=== PATIENT | female | born 2000 | race Two or more races ===

== ENCOUNTER 2023-03-21 12:40 | Emergency (ER) | payer MEDICAID, SELFPAY ==
[2023-03-21 12:52] VITALS: BP 160/109; PULSE 84; RESP 19; TEMP 36.6; O2SAT 99; BMI 49.2
--- NOTE | 2023-03-21 12:52 | ED.GENADULT ---
HPI - General Adult General Chief complaint: Abdominal Pain Stated complaint: ? Miscarriage Time Seen by Provider: 03/21/23 19:47 Source: patient Mode of arrival: ambulatory Limitations: no limitations History of Present Illness HPI narrative: 23 yo female hx of PCOS not on OCPs here with c/o vaginal bleeding on and off for 1 month has gone through a box of pads this month. Notes last night started to have clots and cramps thought it could be a miscarriage so she came here. She saw an OBGYN at [facility] 2 months ago but missed an appointment now has to go through the whole process again. She states she is still bleeding now. She has no other complaints. MD complaint: vaginal bleeding Onset (ago): month(s) (1) Location: pelvis Radiation: non-radiation Severity: mild Pain Consistency: intermittent Relieving factors: none Exacerbating factors: none Associated symptoms: denies other symptoms Treatments prior to arrival: none Related Data Allergies Allergy/AdvReac Type Severity Reaction Status Date / Time No Known Allergies Allergy Verified 03/21/23 12:51 Review of Systems Review of Systems: Constitutional : No Fever, No Chills ENT/Mouth : No sore throat, No Rhinorrhea Eyes: No Eye Pain, No Redness Cardiovascular : No Chest Pain, No SOB Respiratory : No Cough, No Sputum, No Wheezing Gastrointestinal : no Nausea, No Vomiting, No Diarrhea, no abdominal pain, Genitourinary : positive irregular bleeding, No Dysuria, No Urinary Frequency, positive pelvic pain Musculoskeletal : No Myalgias Skin : No rash Neuro : No Weakness, No Headache Psych : No Anxiety/Panic, No Depression Heme/Lymph: No bruising, No Lymphadenopathy Endocrine : No Polyuria, No Polydipsia All other systems reviewed and are negative [facility] Past Medical History Attestation statement: The following information was validated with the patient. Medical History PCOS (polycystic ovarian syndrome) Social History Social History (Updated 03/21/23 @ 19:57 by Fay Lorenzo DO) Patient Tobacco Use Status: Never used Tobacco Advance Directives: No Advance Directives Information Provided: No Physical Exam ED Vital Signs: Vital Signs - 24 hr 03/21/23 12:52 03/21/23 19:53 Temperature 98 F 98.1 F Pulse Rate 84 85 Respiratory Rate 19 16 Blood Pressure 160/109 H 145/87 H Pulse Oximetry 99 100 Oxygen Delivery Method Room Air BMI result Body Mass Index 49.2 Appearance: Alert. Oriented X3. No acute distress. Eyes: Pupils equal, round and reactive to light. ENT: Pharynx normal. Neck: Normal inspection. Neck supple. CVS: Normal heart rate and rhythm. Pulses normal. Respiratory: No respiratory distress. Breath sounds normal. Abdomen: Soft and nontender. : Jessica tech present - scant blood less 1 scopette os closed Skin: Skin warm and dry. Normal skin color. Normal skin turgor. Extremities: No lower extremity edema. No calf ttp Neuro: Oriented X 3. No motor deficit. No sensory deficit. Course Course Course Narrative: This is an RME: Additional HPI, ROS, PE not included below will be deferred to primary provider. This is a [id number], with a hx of irregular menses, presenting to the ER with complaints of vaginal bleeding. She states that she has been bleeding for the last month and half and last night noticed she passed multiple large blood clots last night. She states that typically she has irregular periods that cause her to spot for many days. Reports that she is still having vaginal bleeding now. Plan: Labs, UA, upreg, hcg quant ordered. Reevaluation(s) Reevaluation #1: H/H stable on exam no pain and no sig bleeding can follow up with OB Reevaluation #2: no urinary symptoms - urine likely from blood Medical Decision Making Medical Decision Making [facility] Narrative: 23 yo female with hx of PCOS here with vaginal bleeding x 1 month VS stable, H/H stable quant negative did have OB at [facility] - missed appointment at this time will obtain pelvic exam if sig bleeding will obtain US but if no sig bleeding she can consult her OB for OCP medications Differential Diagnosis Differential Diagnoses: The differential diagnosis associated with the presentation includes PCOS, fibroids, DUB Admission/Observation Consideration of admission/observation: Escalation of care including admission/observation considered H/H stable pelvic exam stable can be DC home to OB follow up Lab Data [facility] Lab Attestation statement: I reviewed the patient's lab results. prior bump in LFTs 03/21/23 13:35 03/21/23 13:35 Labs: Lab Results 03/21/23 03/21/23 03/21/23 Range/Units 13:35 13:35 19:56 WBC 10.3 (4.8-10.8) X10*3/uL RBC 4.94 (4.20-5.50) X10*6/uL Hgb 12.4 (12.0-16.0) g/dl Hct 38.9 (37.0-47.0) % MCV 78.7 L (80.0-98.0) fL MCH 25.1 L (27.0-33.0) pg MCHC 31.9 (31.0-35.0) g/dl RDW 14.1 (11.0-16.0) % Plt Count 243 (160-400) X10*3/uL MPV 10.5 (9.4-12.3) fL Immature Gran % (Auto) 1.2 H (0.0-0.4) % Neut % (Auto) 65.4 (45-73) % Lymph % (Auto) 23.2 (20-40) % [place] % (Auto) 7.3 (2-11) % Eos % (Auto) 2.4 (0-4) % Baso % (Auto) 0.5 (0-2) % Lymph # (Auto) 2.4 (1.2-4.9) X10*3/uL [place] # (Auto) 0.8 (0.1-1.2) X10*3/uL Eos # (Auto) 0.3 (0.0-0.4) X10*3/uL Baso # (Auto) 0.1 (0.0-0.2) X10*3/uL Abs Immat Gran (auto) 0.12 H (0.00-0.03) X10*3/uL Absolute Neuts (auto) 6.8 (2.0-8.3) x10*3/uL Absolute Nucleated RBC 0.000 (0.0-0.012) X10*3/uL Nucleated RBC % (auto) 0.0 (0.0-0.2) /100WBC Sodium 138 (135-145) mmol/L Potassium 4.9 (3.3-5.1) mmol/L Chloride 105 (96-108) mmol/L Carbon Dioxide 26 (22-29) mmol/L Anion Gap 12 (12-20) BUN 8 L (9-16) mg/dL Creatinine 0.69 (0.5-1.4) mg/dL Estim Creat Clear Calc 174.3 Estimated GFR > 60 Random Glucose 142 H (60-115) mg/dL Calcium 9.8 (8.4-10.2) mg/dL Total Bilirubin 0.3 (0.0-1.0) mg/dL Direct Bilirubin 0.1 (0.0-0.5) mg/dL AST 32 H (5-31) U/L ALT 70 H (0-31) U/L Alkaline Phosphatase 101 (39-117) U/L Total Protein 7.6 (6.5-8.0) g/dL Albumin 3.9 (3.5-5.0) g/dL Beta HCG, Quant < 2 mIU/mL Urine Color Yellow Urine Appearance Clear Urine pH 6.0 (5.0-9.0) Ur Specific [place] 1.025 (1.005-1.025) Urine Protein Trace (Neg-Trace) mg/dL Urine Glucose (UA) Negative (Negative) mg/dL Urine Ketones Negative (Negative) mg/dL Urine Blood Large (3+) H (Negative) Urine Nitrite Positive H (Negative) Ur Leukocyte Esterase Negative (Negative) Urine RBC 3-5 H (0-2) /HPF Urine WBC 0-5 (0-5) /HPF Ur Squamous Epith Cells 0-2 (0-2) /HPF Urine Bacteria 4+ (None Seen) Hyaline Casts 0-2 (0-2) /LPF Urine Test (NEGATIVE) 03/21/23 Range/Units 19:56 WBC (4.8-10.8) X10*3/uL RBC (4.20-5.50) X10*6/uL Hgb (12.0-16.0) g/dl Hct (37.0-47.0) % MCV (80.0-98.0) fL MCH (27.0-33.0) pg MCHC (31.0-35.0) g/dl RDW (11.0-16.0) % Plt Count (160-400) X10*3/uL MPV (9.4-12.3) fL Immature Gran % (Auto) (0.0-0.4) % Neut % (Auto) (45-73) % Lymph % (Auto) (20-40) % [place] % (Auto) (2-11) % Eos % (Auto) (0-4) % Baso % (Auto) (0-2) % Lymph # (Auto) (1.2-4.9) X10*3/uL [place] # (Auto) (0.1-1.2) X10*3/uL Eos # (Auto) (0.0-0.4) X10*3/uL Baso # (Auto) (0.0-0.2) X10*3/uL Abs Immat Gran (auto) (0.00-0.03) X10*3/uL Absolute Neuts (auto) (2.0-8.3) x10*3/uL Absolute Nucleated RBC (0.0-0.012) X10*3/uL Nucleated RBC % (auto) (0.0-0.2) /100WBC Sodium (135-145) mmol/L Potassium (3.3-5.1) mmol/L Chloride (96-108) mmol/L Carbon Dioxide (22-29) mmol/L Anion Gap (12-20) BUN (9-16) mg/dL Creatinine (0.5-1.4) mg/dL Estim Creat Clear Calc Estimated GFR Random Glucose (60-115) mg/dL Calcium (8.4-10.2) mg/dL Total Bilirubin (0.0-1.0) mg/dL Direct Bilirubin (0.0-0.5) mg/dL AST (5-31) U/L ALT (0-31) U/L Alkaline Phosphatase (39-117) U/L Total Protein (6.5-8.0) g/dL Albumin (3.5-5.0) g/dL Beta HCG, Quant mIU/mL Urine Color Urine Appearance Urine pH (5.0-9.0) Ur Specific [place] (1.005-1.025) Urine Protein (Neg-Trace) mg/dL Urine Glucose (UA) (Negative) mg/dL Urine Ketones (Negative) mg/dL Urine Blood (Negative) Urine Nitrite (Negative) Ur Leukocyte Esterase (Negative) Urine RBC (0-2) /HPF Urine WBC (0-5) /HPF Ur Squamous Epith Cells (0-2) /HPF Urine Bacteria (None Seen) Hyaline Casts (0-2) /LPF Urine Test NEGATIVE (NEGATIVE) Independent Historian Clinical information obtained from an independent historian. History obtained from or confirmed by: Spouse Tests considered The following testing was considered but not selected: US but given lack of bleeding on exam deferred to her OBGYN Discharge Plan Discharge Clinical Impression: Abnormal vaginal bleeding Patient Disposition: Home, Self-Care Instructions: Dysfunctional Uterine Bleeding (ED) Additional Instructions: avoid aspirin you can take motrin 400mg every 6 to 8 hours. please call your OBGYN. if you cannot get into them you can follow with ours. return for dizziness, large clots bigger than peaches, worsening pain or any other concerns. Referrals: Ean Cortez MD [Physician] - (OBGYN) Discharge Date/Time: 03/21/23 20:40
[2023-03-21 13:39] LABS: MANUAL DIFF FLAG NO
[2023-03-21 13:41] LABS: Basophils Absolute Auto 0.1 X10*3/uL (0.0-0.2); Basophils Percent Auto 0.5 % (0-2); Eosinophils Absolute Auto 0.3 X10*3/uL (0.0-0.4); Eosinophils Percent Auto 2.4 % (0-4); Hematocrit 38.9 % (37.0-47.0); Hemoglobin 12.4 g/dl (12.0-16.0); Imm Gran Abs Auto 0.12 X10*3/uL (0.00-0.03); Imm Gran Pct Auto 1.2 % (0.0-0.4); Lymphocytes Absolute Auto 2.4 X10*3/uL (1.2-4.9); Lymphocytes Percent Auto 23.2 % (20-40); Mean Corpuscular HGB Conc 31.9 g/dl (31.0-35.0); Mean Corpuscular Hemoglobin 25.1 pg (27.0-33.0); Mean Corpuscular Volume 78.7 fL (80.0-98.0); Mean Platelet Volume 10.5 fL (9.4-12.3); Monocytes Absolute Auto 0.8 X10*3/uL (0.1-1.2); Monocytes Percent Auto 7.3 % (2-11); Neutrophils Absolute Auto 6.8 x10*3/uL (2.0-8.3); Neutrophils Percent Auto 65.4 % (45-73); Platelet Count 243 X10*3/uL (160-400); Red Blood Count 4.94 X10*6/uL (4.20-5.50); Red Cell Distribution Width 14.1 % (11.0-16.0); White Blood Count 10.3 X10*3/uL (4.8-10.8)
[2023-03-21 14:05] LABS: Alanine Aminotransferase 70 U/L (0-31); Albumin Level 3.9 g/dL (3.5-5.0); Alkaline Phosphatase 101 U/L (39-117); Anion Gap 12 (12-20); Aspartate Amino Transferase 32 U/L (5-31); Bilirubin Direct 0.1 mg/dL (0.0-0.5); Bilirubin Total 0.3 mg/dL (0.0-1.0); Blood Urea Nitrogen 8 mg/dL (9-16); Calcium 9.8 mg/dL (8.4-10.2); Carbon Dioxide 26 mmol/L (22-29); Chloride 105 mmol/L (96-108); Creatinine Clr Calc Pharmacy 174.3; Estimated Glomerular Filt Rate > 60; Glucose Random 142 mg/dL (60-115); HCG Quantitative < 2 mIU/mL; Potassium 4.9 mmol/L (3.3-5.1); Sodium 138 mmol/L (135-145); Total Protein 7.6 g/dL (6.5-8.0)
[2023-03-21 19:53] VITALS: BP 145/87; PULSE 85; RESP 16; TEMP 36.7; O2SAT 100
[2023-03-21 20:13] LABS: Urine Pregnancy NEGATIVE (NEGATIVE)
[2023-03-21 20:15] LABS: Appearance Urine Clear; Color Urine Yellow; Glucose Urine UA Negative (Negative); Leukocyte Esterase Urine Negative (Negative); Nitrite Urine Positive (Negative); Specific Gravity - Urine 1.025 (1.005-1.025); UMIC TRIGGER UACC YES; UPreg QC Valid YES; Urine Blood Large (3+) (Negative); Urine Ketones Negative (Negative); Urine Protein Trace mg/dL (Neg-Trace)
[2023-03-21 20:59] LABS: Bacteria Urine 4+ (None Seen); Hyaline Casts Urine 0-2 /LPF (0-2); Squamous Epithelial Cell Urine 0-2 /HPF (0-2); UACC Culture Trigger YES; WBC Urine 0-5 /HPF (0-5)
[2023-03-22 11:29] LABS: CT PCR NOT DETECTED (Not Detect.); NG PCR NOT DETECTED (Not Detect.)
== END 2023-03-21 20:40 | disposition home or self-care (01) ==
PROVIDERS: Physician Assistant Medical; Emergency Provider Emergency Medicine; PCP Pediatrics
DX: N93.9 Abnormal uterine and vaginal bleeding, unspecified (principal)
CPT/HCPCS: 0353U; 36415; 80048; 80076; 81001; 81025; 84702; 85025; 87086; 99283; 99284

== ENCOUNTER 2023-04-12 13:46 | Outpatient (REF) | payer MEDICAID, SELFPAY ==
[2023-04-12 17:24] LABS: MANUAL DIFF FLAG NO
[2023-04-12 17:28] LABS: Basophils Absolute Auto 0.1 X10*3/uL (0.0-0.2); Basophils Percent Auto 0.5 % (0-2); Eosinophils Absolute Auto 0.2 X10*3/uL (0.0-0.4); Eosinophils Percent Auto 1.9 % (0-4); Hematocrit 40.7 % (37.0-47.0); Hemoglobin 12.6 g/dl (12.0-16.0); Imm Gran Abs Auto 0.14 X10*3/uL (0.00-0.03); Imm Gran Pct Auto 1.3 % (0.0-0.4); Lymphocytes Absolute Auto 2.4 X10*3/uL (1.2-4.9); Lymphocytes Percent Auto 22.6 % (20-40); Mean Corpuscular Hemoglobin 25.2 pg (27.0-33.0); Mean Corpuscular Volume 81.4 fL (80.0-98.0); Mean Platelet Volume 11.6 fL (9.4-12.3); Monocytes Absolute Auto 0.8 X10*3/uL (0.1-1.2); Monocytes Percent Auto 7.3 % (2-11); Neutrophils Absolute Auto 7.1 x10*3/uL (2.0-8.3); Neutrophils Percent Auto 66.4 % (45-73); Platelet Count 262 X10*3/uL (160-400); Red Cell Distribution Width 14.1 % (11.0-16.0); White Blood Count 10.7 X10*3/uL (4.8-10.8)
[2023-04-12 17:37] LABS: Estimated Average Glucose 151 mg/dL; Hemoglobin A1c % 6.9 % (<6.0)
[2023-04-12 17:48] LABS: Alanine Aminotransferase 72 U/L (0-31); Albumin Level 4.2 g/dL (3.5-5.0); Alkaline Phosphatase 110 U/L (39-117); Aspartate Amino Transferase 37 U/L (5-31); Bilirubin Direct 0.1 mg/dL (0.0-0.5); Bilirubin Total 0.3 mg/dL (0.0-1.0)
[2023-04-12 18:05] LABS: HCG Quantitative < 2 mIU/mL; Insulin 37 uU/mL (2-29); TSH reflex Free T4 1.31 uIU/mL (0.32-4.0); Vitamin D 25-OH Total 27.7 ng/mL (>30)
[2023-04-13 08:28] LABS: HBS Num1 1.51 mIU/mL (0-7.99); HBsAGNum1 0.36 S/CO (0.00-0.99); Hepatitis A Antibody IgM 0.24 Index (0-0.79); Hepatitis B Core Antibody Nonreactive (Nonreactive); Hepatitis B Surface Antigen Negative (Negative); ~HepC Num1 0.19 S/CO (0.00-0.79); ~Hepatitis A Antibody IgM Nonreactive (Nonreactive); ~Hepatitis B Surface Antibody NONREACTIVE (Nonreactive); ~Hepatitis C Antibody Nonreactive (Nonreactive)
== END 2023-04-12 13:47 | disposition home or self-care (01) ==
LOC: HO.CHCLDS 13:46
PROVIDERS: Visit Provider Pediatrics
DX: Z01.84 Encounter for antibody response examination (principal); E28.2 Polycystic ovarian syndrome
CPT/HCPCS: 36415; 80076; 82306; 83036; 83525; 84443; 84702; 85025; 86704; 86706; 86709; 86803; 87340

== ENCOUNTER → 2023-04-26 10:15 | Outpatient (BNVA) | payer MEDICAID, SELFPAY | PROVIDERS: PCP Pediatrics; Visit Provider Physician Assistant ==

== ENCOUNTER 2023-05-02 07:49 | Outpatient (AMB) | payer MEDICAID, SELFPAY ==
--- NOTE | 2023-05-02 13:36 | MHC.OFFVISWM ---
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 BMI 48.5 Allergies No Known Allergies Allergy (Verified 05/02/23 13:36) Medication List - Last Reconciled 05/02/23 by Chung Jhaveri MD metformin 500 mg PO BID HPI TV DOWNSTAIRS MAID SWL BMI 48.5 HPI Details Start time: 1.30pm, End time: 2.18pm ?I spent 43 minutes speaking with the patient on the phone plus an additional 5 minutes reviewing and updating records for a total of 48 minutes HPI Comments History of Present Illness Details Previous weight loss efforts: self diet and exercise Wakes up: 7am, Sleeps: 2am, naps in the afternoon Morning work schedule: 10am-3pm, Evening work schedule: 3pm-9pm Breakfast: 10am (eggs and sausage) Lunch: skips Dinner: 9pm (fast food) Snacks: 12am (chips) Exercise: Gym membership Fluids: Coffee/tea: none, soda: Regular Coke: 20oz/day, juice: 5 bottles per day (apple or orange juice), ETOH: none PFSH Medical History (Updated 05/02/23 @ 13:39 by Chung Jhaveri MD) Hyperlipidemia Morbid obesity PCOS (polycystic ovarian syndrome) Surgical History (Updated 04/26/23 @ 10:30 by Sanna Pantoja CMA) Hx of foot surgery Family History (Updated 04/26/23 @ 10:33 by Sanna Pantoja CMA) Mother Diabetes Thyroid condition Father Family history unknown Social History (Updated 04/26/23 @ 10:30 by Sanna Pantoja CMA) Alcohol intake: never Patient Tobacco Use Status: Never used Tobacco Assessment & Plan Assessment & Plan (1) Morbid obesity: Code(s): E66.01 - Morbid (severe) obesity due to excess calories Plan: 1.? Plan for lap sleeve gastrectomy. If diaphragmatic or ventral hernias are present at time of surgery, these will be repaired laparoscopically as well. Risks and complications were discussed in detail including possible conversion to an open procedure, anastomotic leak, bleeding requiring transfusion, small bowel obstruction, , DVT and pulmonary embolism, cardiac, or pulmonary complications, as long-term complications such as anastomotic ulcer, insufficient weight loss and vitamin deficiencies. I emphasized the importance of close follow-up, adherence to instructions and good communication. 2. Nutritional counseling. A) Plan with LUNCH: Start with 2 Isopure protein (buy at [employer], [employer], [employer], [employer]) shakes (HALF scoop EACH in 8oz water) at 8am-10am and 11am-1pm, dinner at 2pm (10 forks of protein and 10 forks of salad/vegetables) and 3 Zone Perfect protein bars (Zone Perfect protein bars, buy at Amazon, ?[employer], [employer], or [employer]) at 4pm-6pm, 7pm-9pm and 10pm-12am B) Plan with DINNER: Start with one Isopure protein shake (HALF scoop EACH in 8oz water) at 8am-10am, 2 Zone Perfect protein bars at 11am-1pm and 2pm-4pm, dinner at 5pm (10 forks of protein and 10 forks of salad/vegetables), one more Isopure protein shake with HALF scoop in 8oz water at 7pm-9pm and one more Zone Perfect protein bar after dinner at 10pm-12am. So you do 2 protein shakes, 3 protein bars and one meal per day. Meal to include lean meat (beef, fish, pork, turkey, chicken), or bolivian yogurt, or egg whites, or beans with a salad with olive oil and fruits (berries, pears, apples, kiwi). Avoid salt, breads, potatoes, rice, pasta, desserts. 3. Each shake would be drunk slowly, like coffee in a period of 2 hours. 4. Cut each bar in 4 pieces and eat each piece in 30min ?to make each bar last 2 hours. 5. I emphasized the importance of measuring accurately the food portion and measure it when serving the food in plate 6. The meal portions include 10 full-size forks of meat and 10 full-size forks of salad. You always eat the meat portion but you can replace up to 5 forks for salad/vegetables with rice, potatoes or pasta, or a fruit ?if you like. The less you do it the better weight loss will be. 7. One full-size fork is what it can be scooped on the fork without falling aside and not what can be bit with the fork. Use regular forks like those you find in a typical restaurant. 8.? Please send me weight measurements as soon as possible and then once a week. Always include your diet and exercise plan. 9. Start treadmill with an incline of 2.0 and speed of 3.0. Increase incline by 1 every 3 min to a max incline of 8.0, stay 3min at 8.0 and then return to 2.0 and repeat same steps until calorie goal is met. Goal is to burn 2000 calories per week on exercise, which means either 300 calories daily, or 400 calories 5 days per week, or 500 calories 4 days per week, or 650 calories 3 days per week. 10. Alternatively purchase a stationary bike, elliptical or treadmill at home that can track calories. Let me know if you do so I can give you an exercise plan. 11.?It is important of avoiding and for at least 18 months postoperatively and has been discussed at the infosession. 12. Goal is to lose at least 1.5-2lbs per week 13. Goal to lose 10% of your weight before surgery, which is about 29lbs. Ultimate weight goal: 262lbs before surgery 14. Please follow the diet plan exactly without any change. If you don't like something about the plan or you feel hungry you need to communicate with me so I can help you revise the plan. You should not change the plan yourself. 15. Replace regular coke with Coke Zero and the juices with the protein shake (2) PCOS (polycystic ovarian syndrome): Code(s): E28.2 - Polycystic ovarian syndrome (3) Hyperlipidemia: Code(s): E78.5 - Hyperlipidemia, unspecified Orders: Orders Insulin Today E28.2 - Polycystic ovarian syndrome, E66.01 - Morbid (severe) obesity due to excess calories, E78.5 - Hyperlipidemia, unspecified Lipid Panel Today E28.2 - Polycystic ovarian syndrome, E66.01 - Morbid (severe) obesity due to excess calories, E78.5 - Hyperlipidemia, unspecified IRON PROFILE Today E28.2 - Polycystic ovarian syndrome, E66.01 - Morbid (severe) obesity due to excess calories, E78.5 - Hyperlipidemia, unspecified Zinc Today E28.2 - Polycystic ovarian syndrome, E66.01 - Morbid (severe) obesity due to excess calories, E78.5 - Hyperlipidemia, unspecified Comprehensive Met. Panel Today E28.2 - Polycystic ovarian syndrome, E66.01 - Morbid (severe) obesity due to excess calories, E78.5 - Hyperlipidemia, unspecified Vitamin B1 Today E28.2 - Polycystic ovarian syndrome, E66.01 - Morbid (severe) obesity due to excess calories, E78.5 - Hyperlipidemia, unspecified C Reactive Protein Today E28.2 - Polycystic ovarian syndrome, E66.01 - Morbid (severe) obesity due to excess calories, E78.5 - Hyperlipidemia, unspecified H Pylori Breath Test Today E28.2 - Polycystic ovarian syndrome, E66.01 - Morbid (severe) obesity due to excess calories, E78.5 - Hyperlipidemia, unspecified Hemoglobin A1c Today E28.2 - Polycystic ovarian syndrome, E66.01 - Morbid (severe) obesity due to excess calories, E78.5 - Hyperlipidemia, unspecified XR chest 2V Today E28.2 - Polycystic ovarian syndrome, E66.01 - Morbid (severe) obesity due to excess calories, E78.5 - Hyperlipidemia, unspecified ECG 12 lead EKG Today E28.2 - Polycystic ovarian syndrome, E66.01 - Morbid (severe) obesity due to excess calories, E78.5 - Hyperlipidemia, unspecified FL upper GI w air Today E28.2 - Polycystic ovarian syndrome, E66.01 - Morbid (severe) obesity due to excess calories, E78.5 - Hyperlipidemia, unspecified Complete Blood Count Auto Diff Today E28.2 - Polycystic ovarian syndrome, E66.01 - Morbid (severe) obesity due to excess calories, E78.5 - Hyperlipidemia, unspecified Vitamin B12 and Folate Today E28.2 - Polycystic ovarian syndrome, E66.01 - Morbid (severe) obesity due to excess calories, E78.5 - Hyperlipidemia, unspecified Vitamin A Today E28.2 - Polycystic ovarian syndrome, E66.01 - Morbid (severe) obesity due to excess calories, E78.5 - Hyperlipidemia, unspecified Ferritin Today E28.2 - Polycystic ovarian syndrome, E66.01 - Morbid (severe) obesity due to excess calories, E78.5 - Hyperlipidemia, unspecified PTHI Today E28.2 - Polycystic ovarian syndrome, E66.01 - Morbid (severe) obesity due to excess calories, E78.5 - Hyperlipidemia, unspecified TSH reflex Free T4 Today E28.2 - Polycystic ovarian syndrome, E66.01 - Morbid (severe) obesity due to excess calories, E78.5 - Hyperlipidemia, unspecified Vitamin D 25-OH Total Today E28.2 - Polycystic ovarian syndrome, E66.01 - Morbid (severe) obesity due to excess calories, E78.5 - Hyperlipidemia, unspecified US abdomen comp w elastography Today E28.2 - Polycystic ovarian syndrome, E66.01 - Morbid (severe) obesity due to excess calories, E78.5 - Hyperlipidemia, unspecified Referrals Nutrition/Dietitian Referral E28.2 - Polycystic ovarian syndrome, E66.01 - Morbid (severe) obesity due to excess calories, E78.5 - Hyperlipidemia, unspecified Behavioral Health Referral E28.2 - Polycystic ovarian syndrome, E66.01 - Morbid (severe) obesity due to excess calories, E78.5 - Hyperlipidemia, unspecified Telehealth Telehealth Location of provider rendering services: practice address Location of patient: address on file Patient Identification confirmed using: Name, : Yes Telehealth method: voice only Patient verbally consented to treatment: Yes Patient verbally consented to billing insurance company: Yes Patient informed of any privacy concerns related to visit: Yes Minutes spent on Phone/Video with Pt.: 48 Coding Level of Care Code Tele [facility] Pt Level 4 (68629) Diagnoses Morbid obesity E66.01 PCOS (polycystic ovarian syndrome) E28.2 Hyperlipidemia E78.5 Time Spent (min) 48
[2023-05-02 13:47] VITALS: BMI 48.5
== END 2023-05-02 14:18 | disposition home or self-care (01) ==
LOC: HO.HBS 07:49
PROVIDERS: PCP Pediatrics; Visit Provider Surgery
DX: E66.01 Morbid (severe) obesity due to excess calories (principal); Z68.42 Body mass index [BMI] 45.0-49.9, adult; E28.2 Polycystic ovarian syndrome; E78.5 Hyperlipidemia, unspecified
CPT/HCPCS: 99204

== ENCOUNTER → 2023-05-02 07:49 | Outpatient (BNVA) | payer MEDICAID, SELFPAY | PROVIDERS: PCP Pediatrics; Visit Provider Surgery ==

== ENCOUNTER 2023-05-12 08:24 | Outpatient (REF) | payer MEDICAID, SELFPAY ==
--- NOTE | ~2023-05-12 | XR_ITS ---
EXAMINATION: XR CHEST 2 VIEWS CLINICAL INFORMATION: Morbid obesity. COMPARISON: None. TECHNIQUE: Frontal and lateral views of the chest were obtained. FINDINGS: The heart, great vessels, pulmonary vasculature and mediastinum are normal. The lungs show no focal infiltrate, effusion or pneumothorax. There is no acute osseous abnormality. XR/XR chest 2V IMPRESSION: No active cardiopulmonary disease.
[2023-05-12 08:57] LABS: MANUAL DIFF FLAG NO
[2023-05-12 09:18] LABS: Basophils Percent Auto 0.3 % (0-2); Eosinophils Absolute Auto 0.2 X10*3/uL (0.0-0.4); Hematocrit 39.8 % (37.0-47.0); Hemoglobin 12.6 g/dl (12.0-16.0); Imm Gran Abs Auto 0.07 X10*3/uL (0.00-0.03); Imm Gran Pct Auto 0.8 % (0.0-0.4); Lymphocytes Absolute Auto 1.8 X10*3/uL (1.2-4.9); Lymphocytes Percent Auto 20.3 % (20-40); Mean Corpuscular HGB Conc 31.7 g/dl (31.0-35.0); Mean Corpuscular Hemoglobin 24.9 pg (27.0-33.0); Mean Corpuscular Volume 78.7 fL (80.0-98.0); Mean Platelet Volume 10.7 fL (9.4-12.3); Monocytes Absolute Auto 0.7 X10*3/uL (0.1-1.2); Monocytes Percent Auto 8.3 % (2-11); Neutrophils Absolute Auto 5.9 x10*3/uL (2.0-8.3); Neutrophils Percent Auto 68.3 % (45-73); Platelet Count 241 X10*3/uL (160-400); Red Blood Count 5.06 X10*6/uL (4.20-5.50); Red Cell Distribution Width 13.6 % (11.0-16.0); White Blood Count 8.6 X10*3/uL (4.8-10.8)
[2023-05-12 09:25] LABS: Estimated Average Glucose 143 mg/dL; Hemoglobin A1c % 6.6 % (<6.0)
[2023-05-12 09:57] LABS: Alanine Aminotransferase 112 U/L (0-31); Albumin Level 4.1 g/dL (3.5-5.0); Alkaline Phosphatase 100 U/L (39-117); Anion Gap 13 (12-20); Aspartate Amino Transferase 57 U/L (5-31); Bilirubin Total 0.3 mg/dL (0.0-1.0); Blood Urea Nitrogen 14 mg/dL (9-16); C Reactive Protein 1.75 mg/dL (< or = 0.50); Carbon Dioxide 24 mmol/L (22-29); Chloride 104 mmol/L (96-108); Cholesterol 219 mg/dL (<200); Estimated Glomerular Filt Rate > 60; Glucose Random 126 mg/dL (60-115); HDL Cholesterol 34 mg/dL (>40); Iron 39 mcg/dL (30-160); LDL Cholesterol Calculated 160 mg/dL (<100); Percent Iron Saturation 13 % (15-50); Potassium 4.6 mmol/L (3.3-5.1); Sodium 136 mmol/L (135-145); Total Iron Binding Capacity 305 mcg/dL (228-428); Total Protein 7.8 g/dL (6.5-8.0); Triglycerides 126 mg/dL (<150); Unsaturated Iron Binding 266 ug/dL
[2023-05-12 10:14] LABS: Ferritin 102 ng/mL (10-122); Insulin 22 uU/mL (2-29); TSH reflex Free T4 1.12 uIU/mL (0.32-4.0); Vitamin D 25-OH Total 25.3 ng/mL (>30)
[2023-05-12 10:25] LABS: Folate 7.9 ng/mL (> or = 4.0); Vitamin B12 600 pg/mL (200-900)
[2023-05-14 11:04] LABS: Calcium (PTHI) 9.8 mg/dL (8.6-10.2); PTHI 31 pg/mL (16-77)
[2023-05-15 22:44] LABS: Zinc 66 mcg/dL (60-130)
[2023-05-16 14:58] LABS: Vitamin B1 <6 nmol/L (8-30)
[2023-05-17 17:13] LABS: Vitamin A 42 mcg/dL (38-98)
== END 2023-05-12 08:25 | disposition home or self-care (01) ==
LOC: HO.LAB 08:24
PROVIDERS: PCP Pediatrics; Visit Provider Surgery
DX: E66.01 Morbid (severe) obesity due to excess calories (principal); E28.2 Polycystic ovarian syndrome; E78.5 Hyperlipidemia, unspecified
CPT/HCPCS: 71046; 80053; 80061; 82306; 82607; 82728; 82746; 83036; 83525; 83540; 83970; 84425; 84443; 84590; 84630; 85025; 86140

== ENCOUNTER → 2023-05-15 08:32 | Outpatient (REF) | payer MEDICAID, SELFPAY ==
--- NOTE | 2023-05-15 09:08 | ECG_ITS ---
Test Reason : e66.01 Blood Pressure : / mmHG Vent. Rate : 077 BPM Atrial Rate : 077 BPM P-R Int : 146 ms QRS Dur : 084 ms QT Int : 384 ms P-R-T Axes : 038 046 030 degrees QTc Int : 434 ms Normal sinus rhythm Normal ECG No previous ECGs available Referred By: Chung Jhaveri Electronically Signed By:EVITA YEE MD
[2023-05-17 16:30] LABS: H Pylori Breath Test Negative (Negative)
== END ==
LOC: HO.CARD 08:32
PROVIDERS: Absent Provider Surgery; PCP Pediatrics; Visit Provider Physician Assistant
DX: E66.01 Morbid (severe) obesity due to excess calories (principal); E28.2 Polycystic ovarian syndrome; E78.5 Hyperlipidemia, unspecified
CPT/HCPCS: 83013; 93005

== ENCOUNTER 2023-06-01 08:25 | Outpatient (AMB) | payer MEDICAID, SELFPAY ==
--- NOTE | 2023-06-01 10:58 | MHC.OFFVISWM ---
Intake VS Expanded 06/01/23 11:07 Height 5 ft 5 in Weight 277 lb 4 oz BMI 46.1 Body Fat % 60.1 Body Fat Mass 166.7 Fat Free Mass 110.6 Visceral Fat Rating 27 Body Water % 27.3 Body Water Mass 75.7 Basal Metabolic Rate/Score 1,453 Intake Visit Reasons: TV Follow Up SWL - 1ST Allergies No Known Allergies Allergy (Verified 05/02/23 13:36) HPI TV Follow Up SWL - 1ST HPI Details Start time: 10.54am, End time: 11.14am ?I spent 15 minutes speaking with the patient on the phone plus an additional 5 minutes reviewing and updating records for a total of 20 minutes HPI Comments History of Present Illness Details Overall weight loss: 14.2 lbs, or 4.87% TBWL Is doing 2 protein shakes, 2 protein bars and one meal Exercise: is doing home treadmill daily for 400-500 calories (speed: 3mph, incline:). Dancing [facility] Medical History (Updated 05/16/23 @ 17:47 by Chung Jhaveri MD) Hyperlipidemia Morbid obesity PCOS (polycystic ovarian syndrome) Surgical History (Updated 04/26/23 @ 10:30 by Sanna Pantoja CMA) Hx of foot surgery Family History (Updated 04/26/23 @ 10:33 by Sanna Pantoja CMA) Mother Diabetes Thyroid condition Father Family history unknown Social History (Updated 04/26/23 @ 10:30 by Sanna Pantoja CMA) Alcohol intake: never Patient Tobacco Use Status: Never used Tobacco Assessment & Plan Assessment & Plan (1) Morbid obesity: Code(s): E66.01 - Morbid (severe) obesity due to excess calories Plan: 1. Continue same nutritional plan: A) Plan with LUNCH: Start with 2 Isopure protein shakes (HALF scoop EACH in 8oz water) at 8am-10am and 11am-1pm, dinner at 2pm (10 forks of protein and 10 forks of salad/vegetables) and 3 Zone Perfect protein bars at 4pm-6pm, 7pm-9pm and 10pm-12am B) Plan with DINNER: Start with one Isopure protein shake (HALF scoop EACH in 8oz water) at 8am-10am, 2 Zone Perfect protein bars at 11am-1pm and 2pm-4pm, dinner at 5pm (10 forks of protein and 10 forks of salad/vegetables), one more Isopure protein shake with HALF scoop in 8oz water at 7pm-9pm and one more Zone Perfect protein bar after dinner at 10pm-12am. 2. Try to measure the food portions in forkfuls as we discussed today with a goal of 10 forks of protein and 10 forks of salad or vegetables 3. Use the 3rd protein bar if you feel hungrier measuring the food portions as I explained 4. Start treadmill with an incline of 2.0 and speed of 3.0. Increase incline by 1 every 3 min to a max incline of 8.0, stay 3min at 8.0 and then return to 2.0 and repeat same steps until calorie goal is met. Goal is to burn 2000 calories per week on exercise, which means either 300 calories daily, or 400 calories 5 days per week, or 500 calories 4 days per week, or 650 calories 3 days per week. 5. Continue to send me weight measurements weekly on Wednesdays Telehealth Telehealth Location of provider rendering services: practice address Location of patient: address on file Patient Identification confirmed using: Name, : Yes Telehealth method: voice only Patient verbally consented to treatment: Yes Patient verbally consented to billing insurance company: Yes Patient informed of any privacy concerns related to visit: Yes Minutes spent on Phone/Video with Pt.: 20 Coding Level of Care Code Tele Est Pt Level 3 (26702) Diagnoses Morbid obesity E66.01 Time Spent (min) 20
[2023-06-01 11:07] VITALS: BMI 46.1
== END 2023-06-01 11:15 | disposition home or self-care (01) ==
LOC: HO.HBS 08:25
PROVIDERS: PCP Pediatrics; Visit Provider Surgery
DX: E66.01 Morbid (severe) obesity due to excess calories (principal); Z68.42 Body mass index [BMI] 45.0-49.9, adult
CPT/HCPCS: 99213

== ENCOUNTER → 2023-06-01 08:25 | Outpatient (BNVA) | payer MEDICAID, SELFPAY | PROVIDERS: PCP Pediatrics; Visit Provider Surgery ==

== ENCOUNTER 2023-06-04 07:58 | Outpatient (AMB) | payer MEDICAID, SELFPAY ==
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
== END 2023-06-04 09:23 | disposition home or self-care (01) ==
PROVIDERS: PCP Pediatrics; Visit Provider Counselor Mental Health
DX: F33.0 Major depressive disorder, recurrent, mild (principal); F50.81 Binge eating disorder; E66.01 Morbid (severe) obesity due to excess calories; E28.2 Polycystic ovarian syndrome
CPT/HCPCS: 90791

== ENCOUNTER → 2023-06-04 07:58 | Outpatient (BNVA) | payer MEDICAID, SELFPAY | PROVIDERS: PCP Pediatrics; Visit Provider Counselor Mental Health | DX: F50.81 Binge eating disorder (principal); F33.0 Major depressive disorder, recurrent, mild; E66.01 Morbid (severe) obesity due to excess calories; E28.2 Polycystic ovarian syndrome; E78.5 Hyperlipidemia, unspecified | CPT/HCPCS: 90791 ==

== ENCOUNTER → 2023-06-07 11:23 | Outpatient (BNVA) | payer MEDICAID, SELFPAY | PROVIDERS: PCP Pediatrics; Visit Provider Dietitian, Registered | DX: E66.9 Obesity, unspecified (principal) | CPT/HCPCS: 97802 ==

== ENCOUNTER 2023-06-20 08:54 | Outpatient (REF) | payer MEDICAID, SELFPAY ==
--- NOTE | ~2023-06-20 | US_ITS ---
EXAMINATION: US COMPLETE ABDOMEN WITH LIVER ELASTOGRAPHY CLINICAL INFORMATION: Obesity. COMPARISON: None available. TECHNIQUE: Real-time imaging of the abdominal viscera. Noninvasive ultrasound liver fibrosis assessment is performed using Mili ElastPQ point quantification shear wave elastography (2D-SWE) with a C5-2 MHz transducer. Multiple elastography samples are obtained. FINDINGS: PANCREAS: Head and body appear unremarkable. Tail not visualized. ABDOMINAL AORTA: The proximal, middle, and distal aortic segments are normal in caliber. INFERIOR VENA CAVA: Visualized portions are normal. LIVER: Diffusely echogenic. Liver appears unremarkable in contour. No focal lesion or intrahepatic biliary duct dilatation appreciated. The right lobe measures 19.7 cm in length. The left lobe measures 13.2 cm in length. Portal flow is towards the liver (hepatopetal). Shear wave liver elastography median stiffness is 1.69 m/s (reference: normal median stiffness is 1.3 m/s or less). IQR/median stiffness to assess sampling precision is 0.14 (reference: good quality data set is IQR/median stiffness of 0.15 or less). GALLBLADDER: The gallbladder is physiologically distended without evidence of stones, sludge, polyps, wall thickening or pericholecystic fluid. COMMON BILE DUCT: Normal in caliber measuring 0.2 cm in diameter. RIGHT KIDNEY: No hydronephrosis. No renal calculi or focal parenchymal lesion identified. The kidney measures 11.5 cm in maximum dimension. LEFT KIDNEY: No hydronephrosis. No renal calculi or focal parenchymal lesion identified. The kidney measures 12.5 cm in maximum dimension. SPLEEN: The spleen measures 13.5 cm in maximum dimension. FREE FLUID: None. US/US abdomen comp w elastography IMPRESSION: 1. Mild hepatosplenomegaly. Fatty infiltration of the liver. 2. Liver elastography: In the absence of other known clinical signs, measurements rule out compensated advanced chronic liver disease. If there are known clinical signs, further testing may be needed for confirmation. REFERENCE: Society of Radiologists in Ultrasound Liver Stiffness Thresholds (2020): LIVER STIFFNESS THRESHOLDS: *Liver Stiffness equal or less than 1.3 m/s: High probability of being normal. *Liver Stiffness less than 1.7 m/s: In the absence of other known clinical signs, rules out compensated advanced chronic liver disease. *Liver Stiffness 1.7-2.1 m/s: Suggestive of compensated advanced chronic liver disease but need further test for confirmation. *Liver Stiffness over 2.1 m/s: Rules in compensated advanced chronic liver disease. *Liver Stiffness over 2.4 m/s: Suggestive of clinically significant portal hypertension. QUALITY OF DATA SET: *IQR/Median value equal or less than 0.15 implies a quality data set. *IQR/Median value over 0.15 implies a poor quality data set. OTHER CONSIDERATIONS: The stage of liver fibrosis may be overestimated in the setting of acute hepatitis, liver inflammation, elevated liver function tests, hepatic vascular congestion, obstructive cholestasis, non-fasting state, and infiltrative diseases such as amyloidosis and lymphoma. In some patients with NAFLD, the liver stiffness thresholds for compensated advanced chronic liver disease may be lower. In causes other than viral hepatitis and NAFLD, liver stiffness thresholds are not well established.
== END 2023-06-20 08:55 | disposition home or self-care (01) ==
LOC: HO.US 08:54
PROVIDERS: PCP Pediatrics; Visit Provider Surgery
DX: E66.01 Morbid (severe) obesity due to excess calories (principal); E28.2 Polycystic ovarian syndrome; E78.5 Hyperlipidemia, unspecified
CPT/HCPCS: 76705; 76981

== ENCOUNTER 2023-06-25 09:21 | Outpatient (AMB) | payer OTHER, SELFPAY ==
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
== END 2023-06-25 10:09 | disposition home or self-care (01) ==
PROVIDERS: PCP Pediatrics; Visit Provider Counselor Mental Health
DX: F33.0 Major depressive disorder, recurrent, mild (principal); F50.81 Binge eating disorder; E66.01 Morbid (severe) obesity due to excess calories; E28.2 Polycystic ovarian syndrome
CPT/HCPCS: 90834

== ENCOUNTER → 2023-06-25 09:21 | Outpatient (BNVA) | payer MEDICAID, SELFPAY | PROVIDERS: PCP Pediatrics; Visit Provider Counselor Mental Health | DX: F33.0 Major depressive disorder, recurrent, mild (principal); F50.81 Binge eating disorder; E66.01 Morbid (severe) obesity due to excess calories; E78.5 Hyperlipidemia, unspecified; E28.2 Polycystic ovarian syndrome | CPT/HCPCS: 90834 ==

== ENCOUNTER 2023-06-27 08:04 | Outpatient (AMB) | payer MEDICAID, SELFPAY ==
--- NOTE | 2023-06-27 11:13 | MHC.OFFVISWM ---
Intake VS Expanded 06/27/23 11:21 Height 5 ft 5 in Weight 270 lb 8 oz BMI 45.0 Body Fat % 58.4 Body Fat Mass 158.1 Fat Free Mass 112.6 Visceral Fat Rating 26 Body Water % 28.5 Body Water Mass 77.1 Basal Metabolic Rate/Score 1,475 Intake Visit Reasons: TV Follow Up SWL Allergies No Known Allergies Allergy (Verified 05/02/23 13:36) HPI TV Follow Up SWL HPI Details Start time: 11.14am, End time: 11.34am ?I spent 15 minutes speaking with the patient on the phone plus an additional 5 minutes reviewing and updating records for a total of 20 minutes HPI Comments History of Present Illness Details Overall weight loss: 20.7lbs, or 7.1% TBWL Is doing 2 Isopure protein shakes (1/2 scoop in water), 2 Zone Perfect protein bars and one meal (10 forkfuls of protein and 10 forkfuls of salad or vegetables) Exercise: doing treadmill x 3/week (speed: 2.0, incline 2-8) for 400 calories PFSH Medical History (Updated 06/04/23 @ 09:23 by Christy Adhikari) Hyperlipidemia Morbid obesity PCOS (polycystic ovarian syndrome) Surgical History (Updated 04/26/23 @ 10:30 by Sanna Pantoja CMA) Hx of foot surgery Family History (Updated 04/26/23 @ 10:33 by Sanna Pantoja CMA) Mother Diabetes Thyroid condition Father Family history unknown Social History (Updated 04/26/23 @ 10:30 by Sanna Pantoja CMA) Alcohol intake: never Patient Tobacco Use Status: Never used Tobacco Assessment & Plan Assessment & Plan (1) Morbid obesity: Code(s): E66.01 - Morbid (severe) obesity due to excess calories Plan: 1. Continue same nutritional plan of 2 Isopure protein shakes (1/2 scoop in water), 2 Zone Perfect protein bars and one meal (10 forkfuls of protein and 10 forkfuls of salad or vegetables). 2. Change treadmill with an incline of 4.0 and speed of 2.5. Increase incline by 1 every 3 min to a max incline of 10.0, stay 3min at 10.0 and then return to 4.0 and repeat same steps until calorie goal is met. Goal is to burn 2000 calories per week on exercise, which means either 300 calories daily, or 400 calories 5 days per week, or 500 calories 4 days per week, or 650 calories 3 days per week. 3. Continue to send me weight measurements weekly on Wednesdays Telehealth Telehealth Location of provider rendering services: practice address Location of patient: address on file Patient Identification confirmed using: Name, : Yes Telehealth method: voice only Patient verbally consented to treatment: Yes Patient verbally consented to billing insurance company: Yes Patient informed of any privacy concerns related to visit: Yes Minutes spent on Phone/Video with Pt.: 20 Coding Level of Care Code Tele Est Pt Level 3 (47716) Diagnoses Morbid obesity E66.01 Time Spent (min) 20
[2023-06-27 11:21] VITALS: BMI 45.0
== END 2023-06-27 11:35 | disposition home or self-care (01) ==
LOC: HO.HBS 08:04
PROVIDERS: PCP Pediatrics; Visit Provider Surgery
DX: E66.01 Morbid (severe) obesity due to excess calories (principal); Z68.42 Body mass index [BMI] 45.0-49.9, adult
CPT/HCPCS: 99213

== ENCOUNTER → 2023-06-27 08:04 | Outpatient (BNVA) | payer MEDICAID, SELFPAY | PROVIDERS: PCP Pediatrics; Visit Provider Surgery ==

== ENCOUNTER 2023-07-17 09:06 | Outpatient (REF) | payer MEDICAID, SELFPAY ==
--- NOTE | ~2023-07-17 | FL_ITS ---
EXAMINATION: XR FLUOROSCOPY UPPER GI WITH AIR CLINICAL INFORMATION: Preop bariatric surgery; morbid obesity. Patient has no complaints. COMPARISON: None TECHNIQUE: Fluoroscopic air contrast upper GI examination was performed utilizing standard techniques with thin and thick barium and effervescent granules. Numerous spot images were obtained. Several fluoroscopic image hold cine sequences were also obtained. FINDINGS: Lateral cine images of the oropharynx and hypopharynx demonstrate normal swallow mechanism with normal epiglottic inversion and soft palate elevation. No tracheal penetration, glottic or subglottic aspiration identified. No nasopharyngeal reflux present. Hypopharyngeal structures appear normal without evidence of mass or diverticulum. There was no significant cricopharyngeal achalasia. Dual and single contrast images of the esophagus demonstrate normal caliber, contour, and mucosal pattern. No evidence of stricture, mass, or ulcerations identified. Esophageal peristalsis was normal. Tiny type I sliding hiatus hernia present. Spontaneous gastroesophageal reflux was identified to the level of the aortic arch. Dual contrast and single contrast images of the stomach demonstrated normal contour and mucosal pattern without evidence of mass, ulceration, or other abnormality. Contrast freely passed into the gastric antrum and duodenal bulb without delay. Single and air-contrast images of the duodenal bulb demonstrate no abnormality. The duodenal sweep has a normal appearance, course, and mucosal fold appearance. The imaged proximal jejunum has a normal fold pattern and caliber. FLUOROSCOPY TIME: 3 minutes 12 seconds Number of Spot Images: 9 Number of cines obtained: 4 DOSE AREA PRODUCT: 4021 uGy-m2 (microgray-meter squared) FL/FL upper GI w air IMPRESSION: 1. Possible tiny type I sliding hiatus hernia, versus prominent esophageal vestibule. 2. Mild gastroesophageal reflux to the level of the aortic arch. 3. Otherwise normal exam.
== END 2023-07-17 09:07 | disposition home or self-care (01) ==
LOC: HO.XRAY 09:06
PROVIDERS: PCP Pediatrics; Visit Provider Surgery
DX: E66.01 Morbid (severe) obesity due to excess calories (principal); E28.2 Polycystic ovarian syndrome; E78.5 Hyperlipidemia, unspecified
CPT/HCPCS: 74246

== ENCOUNTER → 2023-07-17 09:07 | Outpatient (BNV) | payer MEDICAID, SELFPAY | PROVIDERS: PCP Pediatrics; Visit Provider Radiology Diagnostic Radiology | DX: Z01.818 Encounter for other preprocedural examination (principal); E66.01 Morbid (severe) obesity due to excess calories | CPT/HCPCS: 74246 ==

== ENCOUNTER 2023-07-27 08:00 | Outpatient (AMB) | payer MEDICAID, SELFPAY ==
--- NOTE | 2023-07-27 10:25 | MHC.OFFVISWM ---
Intake VS Expanded 07/27/23 10:32 Height 5 ft 5 in Weight 266 lb 4 oz BMI 44.3 Body Fat % 57.2 Body Fat Mass 152.3 Fat Free Mass 114 Visceral Fat Rating 25 Body Water % 29.3 Body Water Mass 78 Intake Visit Reasons: TV Follow Up SWL Allergies No Known Allergies Allergy (Verified 05/02/23 13:36) HPI TV Follow Up SWL HPI Details Start time: 10.21am, End time: 10.41am ?I spent 15 minutes speaking with the patient on the phone plus an additional 5 minutes reviewing and updating records for a total of 20 minutes HPI Comments History of Present Illness Details Overall weight loss: 25.2lbs, or 8.64% TBWL Is doing 2 Isopure Infusions protein shakes (1/2 scoop in water), 3 Zone Perfect protein bars, and one meal (10 forks of protein and 10 forks of salad) Exercise: is doing treadmill x4/wk for 250 calories (incline 4-10, speed: 3mph) PFS Medical History (Updated 06/04/23 @ 09:23 by Christy Adhikari) Hyperlipidemia Morbid obesity PCOS (polycystic ovarian syndrome) Surgical History (Updated 04/26/23 @ 10:30 by Sanna Pantoja CMA) Hx of foot surgery Family History (Updated 04/26/23 @ 10:33 by Sanna Pantoja CMA) Mother Diabetes Thyroid condition Father Family history unknown Social History (Updated 04/26/23 @ 10:30 by Sanna Pantoja CMA) Alcohol intake: never Patient Tobacco Use Status: Never used Tobacco Physical Exam Vital Signs: BMI result Body Mass Index 44.3 Assessment & Plan Assessment & Plan (1) Morbid obesity: Code(s): E66.01 - Morbid (severe) obesity due to excess calories Plan: 1. Continue same nutritional plan of 2 Isopure Infusions protein shakes (1/2 scoop in water), 3 Zone Perfect protein bars, and one meal (10 forks of protein and 10 forks of salad) 2. Exercise: please continue treadmill x4/week but increase to 400 calories (incline 4-10, speed: 3mph) per work-out. Within the next 3 weeks, try to add a 5th day for work-out so you can get to 5 days for 400 calories per day on treadmill. 3. Continue to send me weight measurements weekly on Wednesdays Telehealth Telehealth Location of provider rendering services: practice address Location of patient: address on file Patient Identification confirmed using: Name, : Yes Telehealth method: voice only Patient verbally consented to treatment: Yes Patient verbally consented to billing insurance company: Yes Patient informed of any privacy concerns related to visit: Yes Minutes spent on Phone/Video with Pt.: 20 Coding Level of Care Code Tele Est Pt Level 3 (00839) Diagnoses Morbid obesity E66.01 Time Spent (min) 20
[2023-07-27 10:32] VITALS: BMI 44.3
== END 2023-07-27 10:41 | disposition home or self-care (01) ==
LOC: HO.HBS 08:00
PROVIDERS: PCP Pediatrics; Visit Provider Surgery
DX: E66.01 Morbid (severe) obesity due to excess calories (principal); Z68.41 Body mass index [BMI] 40.0-44.9, adult
CPT/HCPCS: 99213

== ENCOUNTER → 2023-07-27 08:00 | Outpatient (BNVA) | payer MEDICAID, SELFPAY | PROVIDERS: PCP Pediatrics; Visit Provider Surgery ==

== ENCOUNTER 2023-08-24 08:10 | Outpatient (AMB) | payer MEDICAID, SELFPAY ==
--- NOTE | 2023-08-24 10:13 | MHC.OFFVISWM ---
Intake VS Expanded 08/24/23 10:20 Height 5 ft 5 in Weight 262 lb 2 oz BMI 43.6 Body Fat % 56.1 Body Fat Mass 147 Fat Free Mass 115 Visceral Fat Rating 24 Body Water % 30.1 Body Water Mass 78.9 Basal Metabolic Rate/Score 1,482 Intake Visit Reasons: TV Follow Up SWL Allergies No Known Allergies Allergy (Verified 05/02/23 13:36) HPI TV Follow Up SWL HPI Details Start time: 10.06am, End time: 10.26am ?I spent 15 minutes speaking with the patient on the phone plus an additional 5 minutes reviewing and updating records for a total of 20 minutes HPI Comments History of Present Illness Details Overall weight loss: 29.4lbs, or 10.08% TBWL Is doing 2 Isopure protein shakes (1/2 scoop in water), 3 Zone Perfect protein bars and one meal (10 forks of protein and 10 forks of salad or vegetables) Exercise: is doing treadmill for 4 times per week for 400 calories (speed 4.0 and incline 4.5) PFSH Medical History (Updated 06/04/23 @ 09:23 by Christy Adhikari) Hyperlipidemia Morbid obesity PCOS (polycystic ovarian syndrome) Surgical History (Updated 04/26/23 @ 10:30 by Sanna Pantoja CMA) Hx of foot surgery Family History (Updated 04/26/23 @ 10:33 by Sanna Pantoja CMA) Mother Diabetes Thyroid condition Father Family history unknown Social History (Updated 04/26/23 @ 10:30 by Sanna Pantoja CMA) Alcohol intake: never Patient Tobacco Use Status: Never used Tobacco Assessment & Plan Assessment & Plan (1) Morbid obesity: Code(s): E66.01 - Morbid (severe) obesity due to excess calories Plan: 1. Plan for lap sleeve gastrectomy including upper GI endoscopy. All tests has been completed and reviewed and the patient is cleared for the surgery. ?If diaphragmatic or ventral hernias are present at time of surgery, these will be repaired laparoscopically as well. Risks and complications were discussed in detail including possible conversion to an open procedure, anastomotic leak, bleeding requiring transfusion, small bowel obstruction, , DVT and pulmonary embolism, cardiac, or pulmonary complications, as senior care complications such as anastomotic ulcer, insufficient weight loss and vitamin deficiencies. I emphasized the importance of close follow-up, adherence to instructions and good communication. So far she has proven to be an excellent communicator and very compliant with all our directions accomplishing a great weight loss. I believe that she is an excellent candidate and she is ready. 2. Change nutritional plan to 2 Isopure protein shakes (1/2 scoop in water), 3 Zone Perfect protein bars and one meal (9 forks of protein and 9 forks of salad or vegetables) Exercise: change treadmill with an incline of 4.0 and speed of 3.5. Increase incline by 1 every 3 min to a max incline of 10.0, stay 3min at 10.0 and then return to 4.0 and repeat same steps until calorie goal is met. Goal is to burn 2000 calories per week on exercise, which means either 300 calories daily, or 400 calories 5 days per week, or 500 calories 4 days per week, or 650 calories 3 days per week. 3. Continue to send me weight measurements weekly on Telehealth Telehealth Location of provider rendering services: practice address Location of patient: address on file Patient Identification confirmed using: Name, : Yes Telehealth method: voice only Patient verbally consented to treatment: Yes Patient verbally consented to billing insurance company: Yes Patient informed of any privacy concerns related to visit: Yes Minutes spent on Phone/Video with Pt.: 20 Coding Level of Care Code Tele Est Pt Level 3 (77728) Diagnoses Morbid obesity E66.01 Time Spent (min) 20
[2023-08-24 10:20] VITALS: BMI 43.6
== END 2023-08-24 10:27 | disposition home or self-care (01) ==
LOC: HO.HBS 08:10
PROVIDERS: PCP Pediatrics; Visit Provider Surgery
DX: E66.01 Morbid (severe) obesity due to excess calories (principal); Z68.41 Body mass index [BMI] 40.0-44.9, adult
CPT/HCPCS: 99213

== ENCOUNTER → 2023-08-24 08:10 | Outpatient (BNVA) | payer MEDICAID, SELFPAY | PROVIDERS: PCP Pediatrics; Visit Provider Surgery ==

== ENCOUNTER → 2023-08-31 12:55 | Outpatient (BNVA) | payer MEDICAID, SELFPAY | PROVIDERS: PCP Pediatrics; Visit Provider Surgery ==

== ENCOUNTER 2023-09-01 07:56 | Outpatient (REF) | payer MEDICAID, SELFPAY ==
[2023-09-01 08:52] LABS: MANUAL DIFF FLAG NO
[2023-09-01 09:17] LABS: Basophils Absolute Auto 0.1 X10*3/uL (0.0-0.2); Basophils Percent Auto 0.5 % (0-2); Eosinophils Absolute Auto 0.2 X10*3/uL (0.0-0.4); Eosinophils Percent Auto 1.9 % (0-4); Hematocrit 38.2 % (37.0-47.0); Hemoglobin 12.3 g/dl (12.0-16.0); Imm Gran Abs Auto 0.08 X10*3/uL (0.00-0.03); Imm Gran Pct Auto 0.8 % (0.0-0.4); Lymphocytes Absolute Auto 2.9 X10*3/uL (1.2-4.9); Lymphocytes Percent Auto 28.2 % (20-40); Mean Corpuscular HGB Conc 32.2 g/dl (31.0-35.0); Mean Corpuscular Hemoglobin 25.2 pg (27.0-33.0); Mean Corpuscular Volume 78.3 fL (80.0-98.0); Mean Platelet Volume 10.8 fL (9.4-12.3); Monocytes Absolute Auto 0.8 X10*3/uL (0.1-1.2); Monocytes Percent Auto 8.1 % (2-11); Neutrophils Absolute Auto 6.2 x10*3/uL (2.0-8.3); Neutrophils Percent Auto 60.5 % (45-73); Platelet Count 284 X10*3/uL (160-400); Red Blood Count 4.88 X10*6/uL (4.20-5.50); Red Cell Distribution Width 14.3 % (11.0-16.0); White Blood Count 10.3 X10*3/uL (4.8-10.8)
[2023-09-01 09:25] LABS: INTERNATIONAL NORM RATIO 0.9 (0.9-1.1); Prothrombin Time 11.1 SEC (11.1-13.3)
[2023-09-01 09:28] LABS: Partial Thromboplastin Time 32.7 SEC (26.0-36.8)
[2023-09-01 09:31] LABS: Estimated Average Glucose 114 mg/dL; Hemoglobin A1c % 5.6 % (<6.0)
[2023-09-01 10:39] LABS: Alanine Aminotransferase 59 U/L (0-31); Albumin Level 3.8 g/dL (3.5-5.0); Alkaline Phosphatase 110 U/L (39-117); Anion Gap 13 (12-20); Aspartate Amino Transferase 28 U/L (5-31); Bilirubin Total 0.2 mg/dL (0.0-1.0); Blood Urea Nitrogen 12 mg/dL (9-16); C Reactive Protein 1.48 mg/dL (< or = 0.50); Calcium 9.3 mg/dL (8.4-10.2); Carbon Dioxide 26 mmol/L (22-29); Chloride 103 mmol/L (96-108); Cholesterol 237 mg/dL (<200); Estimated Glomerular Filt Rate > 60; Glucose Random 110 mg/dL (60-115); HDL Cholesterol 37 mg/dL (>40); LDL Cholesterol Calculated 174 mg/dL (<100); Potassium 4.3 mmol/L (3.3-5.1); Sodium 138 mmol/L (135-145); Total Protein 7.5 g/dL (6.5-8.0); Triglycerides 132 mg/dL (<150)
[2023-09-01 10:56] LABS: Insulin 33 uU/mL (2-29); TSH reflex Free T4 1.81 uIU/mL (0.32-4.0)
== END 2023-09-01 07:57 | disposition home or self-care (01) ==
LOC: HO.LAB 07:56
PROVIDERS: PCP Pediatrics; Visit Provider Surgery
DX: E66.01 Morbid (severe) obesity due to excess calories (principal)
CPT/HCPCS: 36415; 80053; 80061; 83036; 83525; 84443; 85025; 85610; 85730; 86140; 86850; 86900; 86901

== ENCOUNTER → 2023-09-03 07:47 | Outpatient (BNVA) | payer MEDICAID, SELFPAY | PROVIDERS: PCP Pediatrics; Visit Provider Surgery ==

== ENCOUNTER 2023-09-05 07:34 | Inpatient (IN) | payer MEDICAID, SELFPAY ==
[2023-09-03 15:12] VITALS: BMI 43.4
--- NOTE | 2023-09-04 09:50 | HO.ANESPROP2 ---
Documented by User: Kelly Stanford NP 09/04/23 09:51 HPI - Anesthesia Eval Consult details Narrative: 23yo F for Gastrectomy Sleeve,EGD,possible diaphragmatic hernia,possible ventral hernia,possible open, PMFSH Active Problems Active Problems: All Active Problems (Updated 09/03/23 @ 14:54 by Sandhya Monroe, CAROLINE) Binge-eating disorder, mild (Acute) Major depressive disorder, recurrent, mild (Acute) Vitamin B1 deficiency (Acute) Vitamin D deficiency (Acute) Hyperlipidemia (Acute) PCOS (polycystic ovarian syndrome) (Acute) Morbid obesity (Acute) Past Medical History Medical History Depression Hyperlipidemia Morbid obesity PCOS (polycystic ovarian syndrome) Family History Family History Mother Diabetes Thyroid condition Father Family history unknown Surgical History Surgical History History of tonsillectomy and adenoidectomy Hx of foot surgery Social History Social History Are you a primary daycare assistant to a significant other at home: No Do you presently have visiting nurse or other home services: No Alcohol intake: never Patient Tobacco Use Status: Never used Tobacco Meds Allergies Allergy/AdvReac Type Severity Reaction Status Date / Time No Known Allergies Allergy Verified 08/31/23 13:56 Home Medications Medication Instructions Recorded Confirmed Last Taken Type metformin 500 mg tablet 500 mg PO BID 05/02/23 09/05/23 08/29/23 History ondansetron 4 mg disintegrating 4 mg PO Q12H PRN nausea and 09/05/23 09/05/23 Unknown History tablet vomiting Exam Height,Weight and Vital Signs: Height 5 ft 5 in Weight 118.388 kg Pertinent Lab Results Pertinent Lab Results: Laboratory Tests 09/01/23 08:42 Blood Type O Positive Antibody Screen NEGATIVE Laboratory Tests 09/01/23 08:49 WBC 10.3 Hgb 12.3 Hct 38.2 Plt Count 284 Sodium 138 Potassium 4.3 Chloride 103 Carbon Dioxide 26 BUN 12 Creatinine 0.80 Assessment and Plan Assessment Anesthesia Assessment: Chart Reviewed Documented by User: Nela Hayden MD 09/05/23 07:25 COUNTS INCLUDE 234 BEDS AT THE [facility] Past Medical History Medical History Depression Hyperlipidemia Morbid obesity PCOS (polycystic ovarian syndrome) Family History Family History Mother Diabetes Thyroid condition Father Family history unknown Surgical History Surgical History History of tonsillectomy and adenoidectomy Hx of foot surgery History of Problems with Anesthesia: No Social History Social History Are you a primary daycare assistant to a significant other at home: No Do you presently have visiting nurse or other home services: No Alcohol intake: never Patient Tobacco Use Status: Never used Tobacco Meds Allergies Allergy/AdvReac Type Severity Reaction Status Date / Time No Known Allergies Allergy Verified 08/31/23 13:56 Home Medications Medication Instructions Recorded Confirmed Last Taken Type metformin 500 mg tablet 500 mg PO BID 05/02/23 09/05/23 08/29/23 History ondansetron 4 mg disintegrating 4 mg PO Q12H PRN nausea and 09/05/23 09/05/23 Unknown History tablet vomiting Exam Airway Mallampati Class: II TM Dist: >3cm Neck ROM: Full Heart: RRR Lungs: CTA Assessment and Plan Assessment Anesthesia Assessment: Anesthesia Plan Discussed Final Anesthetic Review History of Problems with Anesthesia: No NPO: Yes ASA Class: III Final Preanesthetic Review: Meds/Allgs Chart Reviewed, Consent Obtained/Reviewed and Anes Risks/Benef Reviewed Patient Risk: Intermediate Procedure Risk: Intermediate Anesthetic Plan Anesthetic Plan: GA Disposition: Standard PACU
[2023-09-05] VITALS (13 sets, daily range): BP systolic 135–179; BP diastolic 67–107; PULSE 76–114; RESP 12–20; TEMP 36–36.8; O2SAT 95–100; BMI 43.9
[2023-09-05 06:31] LABS: UPreg QC Valid YES; Urine Pregnancy NEGATIVE (NEGATIVE)
[2023-09-05] MEDS: Lactated Ringers 1,000 ML 100 ML IVCONT ×3 (06:47→21:18)
[2023-09-05] MEDS: Aprepitant 32 MG/4.4 ML VIAL IVPUSH (07:07)
--- NOTE | 2023-09-05 07:35 | MHC.SHP ---
Pre-Procedural Eval Section A - 24 Hr Update-Section A only Date of Service: 09/05/23 The patient is an INPATIENT: Yes The patient has been examined within 24 hours of the surgical procedure. The History & Physical has been completed within 30 days and I have reviewed it.: Yes Section B - Complete if H&P > 30 days Chief Complaint: obesity Relevant Family History (Specify if Yes): No Relevant Social History: None Present Medications: None Medical History: No relevant PMH History of Previous Operations: No relevant previous surgery Allergies: Allergies Allergy/AdvReac Type Severity Reaction Status Date / Time No Known Allergies Allergy Verified 08/31/23 13:56 Review of Systems Sugical H&P ROS: Negative: Constitution, Cardiovascular, Respiratory, Neurological, Psychiatric, Hem-Onc, Allergic/Immunologic, Gastrointestinal, Genitourinary, Musculoskeletal, Integumentary, Endocrine and Eyes/Ears/Nose/Throat Exam Surgical H&P Exam: Normal: HEENT, Normal: Heart, Normal: Lungs, Normal: Extremities, Normal: Abdomen, Normal: Skin and Normal: Neurological Plan Diagnosis/Plan: Unchanged I have reviewed the history and physical and performed a pertinent physical examination on my patient. No changes have occurred unless specified. Time Spent With Patient Time: Total time managing care of this patient today ____ minutes.
--- NOTE | 2023-09-05 10:23 | P.DS_ITS ---
DS: Providers Provider Date of Service: 09/06/23 Date of admission: 09/05/23 07:34 Primary care physician: Seema Young MD DS: Summary Hospital Course Hospital Course: ADMITTING DIAGNOSIS: morbid obesity, depression, pcos, hld ? DISCHARGE DIAGNOSIS: same, s/p laparoscopic sleeve gastrectomy ? PAST SURGICAL HISTORY: foot surgery ? PROCEDURE: upper endoscopy, laparoscopic sleeve gastrectomy ? DISCHARGE SUMMARY: ? History of Present Illness: ? The patient is a?23 year-old woman with a BMI of?48.5 kg/m2 and associated co- morbidities as described above. The patient had extensive work-up,lost?31.4 lbs preoperatively and was electively scheduled for laparoscopic, possible open sleeve gastrectomy and gastropexy. Risks and complications of the surgery were discussed with the patient in advance, particularly the possibility of , pulmonary embolism, anastomotic leak, bleeding, bowel injury, GERD, cardiac, renal or pulmonary complications. The patient understood all the risks and was in agreement with the surgical plan. ? Hospital Course: ? The patient underwent an uneventful laparoscopic sleeve gastrectomy with gastropexy on the day of admission. Postoperatively, the patient was transferred to the surgical floor. The patient received IV Acetaminophen and IV dilaudid for pain control. Patient was started on bariatric phase 1 diet POD #0. On postoperative day one, the patient was feeling well without nausea, vomiting, fevers, or tachycardia. The patient had some mild incisional pain and the abdomen was soft. ? On the morning of postoperative day one, the patient was continued on 1 ounce of water or ice every half hour. During the day, the patient did fairly well, having some incisional pain, but able to ambulate adequately and to tolerate liquids well. ? Since the patient is doing well, we decided that the patient was ready to be discharged. The patient was given instructions to follow-up with me next week a nd to call my office for any fever over 101, persistent abdominal pain, nausea, vomiting, GERD, symptoms of DVT such as calf tenderness, or leg swelling, or pulmonary embolism such as chest pain or shortness of breath. The patient was also instructed to drink 40-60 ounces of liquids per day using the 1-ounce cups. The patient had been given prescriptions for Tylenol for pain, Zofran prn for nausea, and pantoprazole and carafate previously. The patient was encouraged to ambulate and use the incentive spirometer. The patient was allowed to shower, but no baths, and encouraged to stay active at home. All of these instructions were given to the patient personally. All questions were answered and the patient understood all instructions, the instructions were also given to the patient in print. Time Attestation Discharge coordination time: Less than 30 minutes Quality: Safe Use of Opioids Does Pt have an Active Cancer Diagnosis on the Problem List?: No Quality: Stroke Does the patient have a stroke diagnosis?: No Physical Exam Vital Signs: Vital Signs: Last Vital Signs Temp 97.5 F 09/05/23 06:24 Pulse 88 09/05/23 06:24 Resp 16 09/05/23 06:24 BP 149/97 H 09/05/23 06:24 Pulse Ox 97 09/05/23 06:24 O2 Del Method Room Air 09/05/23 06:24 BMI result Body Mass Index 43.9 DS: Data Data Completed and Pending Pending studies at discharge: Pending at discharge 09/05/23 09:34 Surgical [PTH] Routine Labs on day of discharge: Laboratory Results - last 24 hr 09/05/23 06:01 Urine Test NEGATIVE Discharge Plan Discharge Anticipated Discharge Date/Time: 09/06/23 10:00 Patient Disposition: Home, Self-Care Discharge Diagnosis: s/p laparoscopic sleeve gastrectomy Referrals: Seema Young MD [Primary Care Provider] - 1 Week Discharge Medications: Continued ondansetron 4 mg tablet,disintegrating 4 mg PO Q12H PRN (Reason: nausea and vomiting) Rx Instructions: Only take one every 12 hours as needed if you have nausea pantoprazole 40 mg tablet,delayed release (DR/EC) 40 mg PO DAILY Qty: 90 0RF Discharge Orders: Discharge Order (Routine); Ordered 09/06/23 Ordered By: Chung Jhaveri Activity on Discharge: No heavy lifting Stand Alone Forms: Patient Portal Discharge page Care Plan Goals: weight loss Health Concerns: morbid obesity Plan of Treatment: No tub baths, sex or returning to work until discussed at first post op appointment. No exercise, alcohol, tobacco or illegal drug use. Continue to use incentive spirometer hourly while awake. Walk in home for 5- 10 minutes every 2 hours during the first week. Follow all instructions in the bariatric handbook and call with any questions.Discharge Instructions 1. Please call your doctor or come back to the emergency room should any new symptoms arise. 2. You will receive a courtesy call from [facility] 24-48 hours after discharge. 3. Activity: abstain from alcohol, practice limited stair climbing, no bending, no driving, no exercise, no illicit substances, no lifting, no sex, no tub bath, no work. 4. Diet: continue as discussed with Dr. Jhaveri. 5. Dressing Change/Wound Care: Your incision is covered by clear bandages and guaze underneath. If the area is tender, you may apply an ice pack for short intervals (no more than 20 minutes on, followed by at least 20 minutes off). Do not apply heat. Do not use creams, lotions, or topical antibiotics unless instructed to do so by your surgeon. These can cause infection or allergic reaction. 6. Call your doctor if: - Your temperature exceeds 101.5 F - You experience excessive pain or swelling - You have an unexpected reaction to medication - You have excessive bleeding - You experience continued vomiting/nausea - Your incision begins to separate - Your incision shows signs of infection such as increased redness, swelling, excessive pain, heat, or drainage (light blood or clear fluid is normal) 7. General instructions: No lifting greater than 5 lbs for 1 week and not more than 20lbs the next 3?weeks. No driving until seen at the office in 5-7 days after surgery. If you do not move your bowels in the next 2 days, please tell?Dr. Jhaveri. Please walk around your home every hour or two to prevent blood clots from forming in your legs. You do not need to wake from sleeping to walk. Please sleep in a bed or couch to prevent kinking at the hips and knees. Please take your incentive spirometer (your lung implementation architect) home with you and use it for the next few days to prevent pneumonia. You may shower, no hot tubs, baths or swimming pools.?Please follow the post op diet instructions you are?given by Dr Jhaveri? and text me daily at 5-6pm for an update.?If you have any issues or concerns or questions please communicate this to him via text.? The Celebrate shakes have all of the bariatric vitamins you need if you consume these shakes. If you are drinking other protein shakes, you will need to purchase the Celebrate multivitamins and calcium that are available in the hospital gift shop on the first floor of the main hospital.??Do not take anything without first discussing with Dr Jhaveri. Please make sure you are consuming at least 40 ounces of fluids per day starting the?day AFTER your discharge from the hospital. Always drink 1-2 ml per minute using the 5ml?syringe. If you drink faster you may experience?bloating,?gas pain, burping, nausea or heartburn. In that case please slow down your pace and use the syringe to?understand better the?proper?pace and volume of drinking. Do not hesitate to contact the office with any questions at . The patient's medical history has been reviewed and they are considered low risk for post op DVT and therefore DVT prophylaxis is not considered necessary. Travel after surgery was reviewed. The patient has not disclosed any travel plans during the first 30 days after surgery and they have been advised that within the first 30 days after surgery any bus, plane, train or car travel over 2 hours in duration is contraindicated due to the possibility of developing blood clots from immobility. Any travel, needs to include periods of ambulation of 10 minutes in duration every 2 hours.? The patient was instructed to discuss any plans for travel during this period with their bariatric surgeon. Assessment: stable s/p laparoscopic sleeve gastrectomy
--- NOTE | 2023-09-05 10:28 | PM.OP ---
Brief Operative Note Date of Service: 09/05/23 Pre-op diagnosis: Morbid obesity with comorbidities (see below) Post-op diagnosis: same (& liver steatosis, splenomegaly, congenital retrogastric adhesions) Procedure: INITIAL PATIENT BMI ON PRESENTATION AT OUR OFFICE: 48.5 kg/m2 LAST BMI BEFORE SURGERY: 43.5 kg/m2 COMORBIDITIES: PCOS, hyperlipidemia, GERD, liver fibrosis ?The patient presented to the Weight Management Program with significant obesity that was negatively impacting the patient's comorbidities as listed above.? The program is a phased program with a special focus on preoperative medical weight management to promote substantial weight loss and prepare the patients for the second phase of the program: bariatric surgery. The patient participated in an intensive weekly lifestyle ?intervention and exercise program during which the patient ?has lost between the initial office visit and the last preoperative visit 30.6 lbs, or 10.49% of initial actual body weight. It was deemed appropriate for the patient to now have bariatric surgery. In light of the current Covid-19 pandemic and the well documented strong association of obesity and increased risk of worse outcomes if infected with Covid-19 (REFERENCES:https://pubmed.ncbi.nlm.nih.gov/68099788/,?https://pubmed.ncbi.nlm.nih.gov/38614249/), any delay in undergoing bariatric surgery may lead to the patient's worsening health condition and increased?risk of more severe Covid-19 disease if infected. In addition a recent?study from [facility] published in [employer] on 07/18/2021 ([email or web address]) found that, among patients with obesity, substantial weight loss achieved with surgery was associated with improved outcomes of COVID-19 infection. The findings suggest that obesity can be a modifiable risk factor for the severity of COVID-19 infection. In addition, the patient met the BMI-criteria for bariatric surgery based on the BMI on initial presentation. The patient should not be penalized for achieving such weight loss because ?it is not sustainable long-term without surgical intervention and it was achieved in preparation for bariatric surgery ?under my direction and based on my published research ([email or web address]).[email or web address] and?[email or web address].soard.org/article/[email or web address]/pdf) ?that a 10% preoperative weight loss improves long-term weight loss after surgery and reduces perioperative complications.? Insurance carriers such as [facility] have endorsed my recommendations ?and have included in their policies criteria to include a 10% preoperative weight loss requirement. PROCEDURE: Esophago-gastroscopy, laparoscopic lysis of adhesions, laparoscopic sleeve gastrectomy and laparoscopic gastropexy INDICATIONS: This is a 23 year-old female who was electively scheduled for laparoscopic, possibly open sleeve gastrectomy. The risks and complications of the procedure were discussed with the patient in advance, particularly the possibility of ; pulmonary embolism; staple line leak; bleeding; GERD; cardiac, pulmonary, or renal complications; as well as long-term problems such as insufficient weight loss, vitamin deficiency, strictures, or ulcers. The patient understood all the risks, and was in agreement to proceed with surgery. DESCRIPTION OF PROCEDURE: After informed consent was obtained from the patient, the patient was given preoperative antibiotics, and was transferred to the operating room. After successful induction of general anesthesia, pneumatic compression devices were placed on both lower extremities. An upper endoscopy was performed next. The oropharynx and esophagus appeared to be within normal limits. There was no diaphragmatic hernia present, consistent with the findings of the preoperative upper GI. The stomach was entered. Then after all fluid and air were suctioned and the stomach was fully decompressed, the scope was withdrawn and secured in the mid esophagus. The patient was then prepped and draped in the usual sterile manner, and abdominal access was established at the right upper quadrant with the Nicola technique. A 12 mm blunt port was inserted, and the abdomen was insufflated with CO2 to a pressure of 15 mmHg. Under direct visualization, additional ports were placed, specifically two 5 mm Versi-step ports to the left upper quadrant, and a 5 mm Versi-Step port to the right upper quadrant. 1% lidocaine plain was used to infiltrate all port sites as well as all fascia defects. Following that, the patient was placed in a steep reverse Trendelenburg position. An additional 5 mm port was placed to the right flank for the Mediflex retractor that was used to retract the left lobe of the liver. The gastro-esophageal fat pad was opened with the ultrasonic device (Thunderbeat, Olympus) and the anterior esophagus and hiatus were exposed. The angle of His was opened with the ultrasonic device the fundus of the stomach from any diaphragmatic and splenic attachments. I then opened the gastrocolic ligament between the transverse colon and the greater curvature of the stomach with the ultrasonic device to enter the lesser sac and facilitate the ligation of the short gastric vessels. I started at a mid-point along the greater curvature and using the Thunderbeat, all short gastric vessels were divided all the way to the angle of His until the left alisia was completely dissected at its entirety. I then divided the gastro-colic ligament distally to a distance of about 3-4 cm proximal to the pylorus. There were extensive congenital adhesions between the pancreas and posterior gastric wall. Those were lysed completely with the ultrasonic device. Adhesiolysis took approximately 45 min to complete. The stomach was then divided transversely with one Endo INGRID-45 purple and four INGRID-60 articulating purple loads using the SIGNIA stapler and loads. Every effort was made that the gastric sleeve had a tubular shape and an even caliber throughout. Once the sleeve resection was completed, the staple line of the gastric sleeve was reinforced with Hemoclips. The resected stomach was retrieved without difficulty from the Nicola port. A gastropexy was then performed in order to prevent postoperative GERD and partial gastric volvulus. Several interrupted 2.0 Surgidac sutures were placed between the sleeve's staple line and the previously divided greater omentum and gastro-colic ligament using the Endo-Stitch device. ?An upper endoscopy was performed. There was no narrowing at the GE junction. The scope was easily advanced all the way to the pylorus which was clearly visualized. There was no narrowing anywhere and the sleeve's caliber was even throughout. The sleeve's staple line was inspected and there was no evidence of ischemia, bleeding or dehiscence. At that point the gastroscope was withdrawn from the patient?s mouth while we were decompressing the bowel and the stomach from any remaining air. I looked into the lesser sac to see how the sleeve was situating and it was situating well. There was no bleeding from the staple line, spleen, or short gastric vessels. The Mediflex retractor was removed, and the undersurface of the liver was inspected and there was no bleeding. The patient was placed in supine position. I closed the fascial defect of the 12 mm port site with a figure of eight #1 Polysorb suture. Then 30cc Ropivacaine plain with 10 mg of Dexamethasone were used to infiltrate the fascial closure as well as all skin incisions. At this point, the abdomen was deflated, all ports were removed under direct vision, and no bleeding was noted from any of the port sites. The skin incisions were irrigated with saline and were closed with 4-0 absorbable monofilament sutures. Steri-Strips and OpSites were used to cover all incisions. The patient was extubated and was transferred in stable condition to the recovery room for further care. I was present and performed all melendez parts of the procedure. Mr. Dc was the pharmacy innovation assistant. There were no residents to assist with this case. Jonatan Jhaveri MD, PhD, FACS Surgeon: Chung Jhaveri MD Anesthesia: GETA, local and other (TAP block) Was an Teaching Manager used for this Procedure?: Yes Teaching Manager: Denilson Dc Estimated blood loss (mL): 10 Urine output (mL): 0 (No Gaimng to record output) Pathology: other (Stomach) Condition: stable Disposition: PACU
--- NOTE | 2023-09-05 10:32 | P.PNGS_ITS ---
Subjective Subjective Date of Service: 09/06/23 Interval history: Feels well. Mild incisional pain. She is tolerating phase 1 bariatric diet Physical Exam 2 Vital Signs: Vital Signs: Last Vital Signs Temp 98.2 F 09/05/23 10:23 Pulse 99 09/05/23 10:28 Resp 16 09/05/23 10:28 BP 159/88 H 09/05/23 10:28 Pulse Ox 100 09/05/23 10:28 O2 Del Method Simple Mask 09/05/23 10:28 O2 Flow Rate 6 09/05/23 10:28 BMI result Body Mass Index 43.9 GI: Inspection: Yes normal to inspection, Yes incision (clean, dry and intact) and Yes obesity Palpation (GI): Soft to palpation Extrem: Right lower extremity: normal to inspection (no calf tenderness) L eft lower extremity: normal to inspection (no calf tenderness) Objective Data Active Medications Albuterol Sulfate (Albuterol Sulfate (0.083%) 2.5 Mg/3 Ml Vial.Neb) 2.5 mg INHALE ONCE PRN PRN Reason: Wheezing Fentanyl (Fentanyl Citrate/Pf 100 Mcg/2 Ml Vial) 25 mcg IVPUSH Q5M PRN; Protocol PRN Reason: Pain, Moderate(Pain Scale 4-6) Hydromorphone HCl (Hydromorphone Hcl 0.5 Mg/0.5 Ml Syringe) 0.25 mg IVPUSH Q5M PRN; Protocol PRN Reason: Pain, Severe (Pain Scale 7-10) Lactated Ringer's (Lr) 1,000 mls @ 100 mls/hr IVCONT .Q10H CARMEN Last Admin: 09/05/23 06:47 Dose: 100 mls/hr Documented By: CAMMY Ondansetron HCl (Ondansetron Hcl 4 Mg/2 Ml Vial) 4 mg IVPUSH ONCE PRN PRN Reason: Nausea and Vomiting Oxycodone HCl (Oxycodone Hcl Immed Release 5 Mg Tablet) 5 mg PO ONCE PRN PRN Reason: Pain, Severe (Pain Scale 7-10) Labs 09/06/23 06:05 09/06/23 06:05 Labs: Laboratory Results - last 24 hr 09/05/23 06:01 Urine Test NEGATIVE Procedures Date of Service Date of Service: 09/06/23 Progress Note: A&P Assessment and plan (1) Morbid obesity: Status: Acute Assessment and Plan: s/p laparoscopic sleeve gastrectomy, lysis of adhesions, diaphragmatic hernia repair and gastropexy Doing well Will check am labs and if OK the patient will be discharged home (2) S/P laparoscopic sleeve gastrectomy: Status: Acute (3) Hyperlipidemia: Status: Acute (4) PCOS (polycystic ovarian syndrome): Status: Acute (5) Steatosis, liver: Status: Acute (6) Liver fibrosis: Status: Acute (7) Congenital intra-abdominal adhesions: Status: Acute (8) GERD (gastroesophageal reflux disease): Status: Acute Time Spent With Patient Time: Total time managing care of this patient today ____ minutes. Quality Stroke Does the patient have a stroke diagnosis?: No VTE Prior VTE?: No VTE Risk Level:: Surgical - moderate VTE Device Contraindication: N/A - Device Ordered VTE Drug Contraindication: Treatment Not Indicated
[2023-09-05 11:48] LABS: Hematocrit 38.4 % (37.0-47.0); Hemoglobin 12.3 g/dl (12.0-16.0)
[2023-09-05 11:58] LABS: Anion Gap 14 (12-20); Blood Urea Nitrogen 9 mg/dL (9-16); Calcium 10.2 mg/dL (8.4-10.2); Carbon Dioxide 23 mmol/L (22-29); Chloride 103 mmol/L (96-108); Creatinine Clr Calc Pharmacy 135.5; Estimated Glomerular Filt Rate > 60; Glucose Random 140 mg/dL (60-115); Potassium 4.3 mmol/L (3.3-5.1); Sodium 136 mmol/L (135-145)
[2023-09-05] MEDS: Acetaminophen 1,000 MG/100 ML PIGGYBACK 16.7 MG IV ×2 (12:17→18:28)
--- NOTE | 2023-09-05 13:09 | PHA.MEDREC ---
Pharmacy Consult ? Medication Reconciliation Pharmacy has completed the medication reconciliation.Patient confirms she takes no medications at home except for the three medications Pantoprazole 40mg, ondansetron 4mg, and sucralfate 100mg/ml (10ml BID) that were prescribed for this hospital stay.
[2023-09-05] MEDS: ceFAZolin Sodium/Dextrose,Iso 2 GM/50 ML PIGGYBACK IV (13:19)
[2023-09-05] MEDS: HYDROmorphone HCl 0.5 MG/0.5 ML SYRINGE 0.25 MG IVPUSH (16:25)
[2023-09-05] MEDS: Famotidine/PF 20 MG/2 ML VIAL IVPUSH (21:17)
[2023-09-05] MEDS: 0.9 % Sodium Chloride Flush 3 ML SYRINGE IVFLUSH (21:18)
[2023-09-06] MEDS: Acetaminophen 1,000 MG/100 ML PIGGYBACK 16.7 MG IV ×2 (00:32→06:24)
[2023-09-06 03:13] VITALS: BP 136/70; PULSE 74; RESP 14; TEMP 36; O2SAT 97
[2023-09-06] MEDS: Lactated Ringers 1,000 ML 100 ML IVCONT (06:24)
[2023-09-06 07:05] LABS: MANUAL DIFF FLAG NO
[2023-09-06 07:09] LABS: Basophils Percent Auto 0.1 % (0-2); Hematocrit 36.1 % (37.0-47.0); Hemoglobin 11.6 g/dl (12.0-16.0); Imm Gran Abs Auto 0.16 X10*3/uL (0.00-0.03); Imm Gran Pct Auto 1.1 % (0.0-0.4); Lymphocytes Absolute Auto 1.3 X10*3/uL (1.2-4.9); Lymphocytes Percent Auto 8.7 % (20-40); Mean Corpuscular HGB Conc 32.1 g/dl (31.0-35.0); Mean Corpuscular Hemoglobin 24.7 pg (27.0-33.0); Mean Corpuscular Volume 76.8 fL (80.0-98.0); Mean Platelet Volume 10.9 fL (9.4-12.3); Monocytes Absolute Auto 1.2 X10*3/uL (0.1-1.2); Neutrophils Absolute Auto 12.1 x10*3/uL (2.0-8.3); Neutrophils Percent Auto 82.1 % (45-73); Platelet Count 322 X10*3/uL (160-400); Red Cell Distribution Width 14.2 % (11.0-16.0); White Blood Count 14.8 X10*3/uL (4.8-10.8)
[2023-09-06] MEDS: Famotidine/PF 20 MG/2 ML VIAL IVPUSH (07:10)
[2023-09-06 07:30] LABS: Anion Gap 14 (12-20); Blood Urea Nitrogen 8 mg/dL (9-16); Calcium 9.4 mg/dL (8.4-10.2); Carbon Dioxide 22 mmol/L (22-29); Chloride 105 mmol/L (96-108); Creatinine Clr Calc Pharmacy 160.7; Estimated Glomerular Filt Rate > 60; Glucose Random 99 mg/dL (60-115); Sodium 137 mmol/L (135-145)
[2023-09-06 07:38] VITALS: BP 124/65; PULSE 68; RESP 16; TEMP 36; O2SAT 98
--- NOTE | 2023-09-06 09:27 | MHC.CM.PN ---
PATIENT IS FULLY INDEPENDENT WITH HER ADLS. NO DME OR VNA SERVICES. HER MOTHER IS REPORTEDLY HCP AGENT AND A COPY IS REQUESTED. PATIENT HAS TRANSPORT HOME AND IS AWARE THAT SHE IS DC TODAY. RN AWARE OF PLAN.
--- NOTE | 2023-09-06 12:01 | HO.POSTANES ---
Post Anesthesia Evaluation Post Anesthesia Evaluation Date of Service: 09/06/23 Vital Signs: Vital Signs Temp Pulse Resp BP Pulse Ox O2 Del Method 09/06/23 07:38 96.8 F 68 16 124/65 98 Room Air 09/06/23 03:13 96.8 F 74 14 136/70 97 Room Air Anesthesia: General Endotracheal-GETA Mental Status: Awake Pain Control: Satisfactory Nausea/Vomiting: None Hydration: Adequate Anesthesia-Related Issues: No Anes. Related Issues
== END 2023-09-06 10:23 | disposition home or self-care (01) | DRG 403 ==
LOC: HO.SSSA 10:25 → HO.S3 10:30
PROVIDERS: Nurse Practitioner; Physician Assistant Surgical; Admitting Provider Surgery; PCP Pediatrics; Visit Provider Surgery
PROC: 0DB64Z3 Excision of Stomach, Percutaneous Endoscopic Approach, Vertical (ICD-10-PCS; CPT 43845; principal; 2023-09-05 07:30)
DX: E66.01 Morbid (severe) obesity due to excess calories (principal); K74.00 Hepatic fibrosis, unspecified; Q43.3 Congenital malformations of intestinal fixation; E28.2 Polycystic ovarian syndrome; F32.A Depression, unspecified; Z68.41 Body mass index [BMI] 40.0-44.9, adult; E78.5 Hyperlipidemia, unspecified; K21.9 Gastro-esophageal reflux disease without esophagitis; Z79.899 Other long term (current) drug therapy
CPT/HCPCS: 36415; 80048; 80053; 80061; 81025; 83036; 83525; 84443; 85014; 85018; 85025; 85610; 85730; 86140; 86850; 86900; 86901; 88304; 88305; 88307; 88342; A4649; C9088; C9145; J0131; J0690; J1100; J1170; J2250; J2405; J2704; J2795; J3010; J7120

== ENCOUNTER → 2023-09-05 07:34 | Outpatient (BNV) | payer MEDICAID, SELFPAY | PROVIDERS: Admitting Provider Surgery; PCP Pediatrics; Visit Provider Surgery | DX: E66.01 Morbid (severe) obesity due to excess calories (principal); Z68.42 Body mass index [BMI] 45.0-49.9, adult; K66.0 Peritoneal adhesions (postprocedural) (postinfection) | CPT/HCPCS: 43659; 43775; 99024 ==

== ENCOUNTER 2023-09-11 09:59 | Outpatient (AMB) | payer MEDICAID, SELFPAY ==
--- NOTE | 2023-09-11 10:55 | A.OFFVIS_ITS ---
Intake VS Expanded 09/11/23 11:11 BP 139/86 Blood Pressure Location Rt brachial Blood Pressure Position Sitting Pulse 105 H Pulse Source Pulse Oximeter Temp 97.4 F Temperature Source Temporal Artery Scan Pulse Oximetry 98 Oxygen Delivery Method Room Air Height 5 ft 5 in Weight 252 lb 3.2 oz BMI 42.0 Body Fat % 45.7 Body Fat Mass 115.0 Fat Free Mass 137.0 Visceral Fat Rating 11.0 Body Water % 39.1 Body Water Mass 98.6 Muscle Mass/Score 130.0 Basal Metabolic Rate/Score 1,982 Intake Visit Reasons: (OV) PO LSG 09/05/23 Allergies No Known Allergies Allergy (Verified 09/11/23 10:59) HPI HPI Comments History of Present Illness Details Patient is a pleasant 23-year-old female returns to the office today. She is approximately 6 days status post sleeve gastrectomy performed on 09/05/2023. Patient is supposed to be doing 3 celebrate foreign 1 shakes but she is only getting about 2-1/2 as she has been having burping. She admits she is poten tially drinking too quickly. She denies any pain and has moved her bowels. She is additionally getting 40-50 oz of fluid per day. [facility] Medical History (Updated 09/08/23 @ 00:03 by Pushpa Hall) GERD (gastroesophageal reflux disease) Depression Hyperlipidemia Morbid obesity PCOS (polycystic ovarian syndrome) Surgical History (Updated 09/11/23 @ 10:59 by Sanna Pantoja CMA) S/P laparoscopic sleeve gastrectomy History of tonsillectomy and adenoidectomy Hx of foot surgery Family History Mother Diabetes Thyroid condition Father Family history unknown Social History Household Members: Family Housing: Apartment Are you a primary field care advocate to a significant other at home: No Do you presently have visiting nurse or other home services: No Alcohol intake: never Patient Tobacco Use Status: Never used Tobacco service: No Physical Exam GI Inspection: Yes incision (c/d/i) Assessment & Plan Assessment & Plan (1) S/P laparoscopic sleeve gastrectomy: Code(s): Z98.84 - Bariatric surgery status Plan: POD 6 s/p LSG on 09/05/[address] Jhaveri Weight loss prior to surgery was 31.4 pounds or 12 % TBWL. Original weight on 05/02/2023 was 291.6 pounds and op weight was 260.2 pounds. Be sure to text Dr Jhaveri exactly 1 week after surgery your weight from your home scale so he can adjust your meal plan. Continue meal plan until f/u w Dc in 2 weeks May shower, no submersion in bath for another week Continue abdominal binder with activity and exercise for the next 2 weeks. Exercise prior to surgery was [employer]-elliptical, may resume No abdominal exercises for 6 weeks post operatively Will be emailed link to post op video for review Reminded of the pace of drinking, 2 mL per minute, 1 oz/15 min. Coding Level of Care Code Global (37702) Diagnoses S/P laparoscopic sleeve gastrectomy Z98.84
[2023-09-11 11:11] VITALS: BP 139/86; PULSE 105; TEMP 36.3; O2SAT 98; BMI 42.0
== END 2023-09-11 11:17 | disposition home or self-care (01) ==
PROVIDERS: PCP Pediatrics; Visit Provider Physician Assistant Surgical
DX: Z98.84 Bariatric surgery status (principal)
CPT/HCPCS: 99024

== ENCOUNTER → 2023-09-11 09:59 | Outpatient (BNVA) | payer MEDICAID, SELFPAY | PROVIDERS: PCP Pediatrics; Visit Provider Physician Assistant Surgical | DX: Z98.84 Bariatric surgery status (principal) | CPT/HCPCS: 99212 ==

== ENCOUNTER 2023-10-03 09:16 | Emergency (ER) | payer MEDICAID, SELFPAY ==
--- NOTE | ~2023-10-03 | CT_ITS ---
EXAMINATION: CT ABDOMEN AND PELVIS WITH CONTRAST CLINICAL INFORMATION: Epigastric pain. Status post laparoscopic gastrectomy August 2023. COMPARISON: None available. TECHNIQUE: Multidetector volumetric images were obtained from the superior aspect of the liver through the pubic symphysis following administration 85 mL of Omnipaque 350 intravenous contrast. Sagittal and coronal reformatted images were obtained on the technologist's workstation. Oral contrast: Administered This CT examination was performed using dose optimization techniques as appropriate, variously including the following: *Automated exposure control *Adjustment of mA and/or kV according to patient size (this includes techniques or standardized protocols for targeted exams where dose is matched to indication/reason for exam; i.e. extremities or head) *Use of iterative reconstruction technique DLP: 895 mGy-cm FINDINGS: LUNG BASES: The visualized lung bases are unremarkable. LIVER, GALLBLADDER, AND BILIARY TREE: The liver is normal in size, shape, and attenuation. No focal hepatic lesion or biliary ductal dilatation is present. The gallbladder is unremarkable with no evidence of radiopaque gallstones, gallbladder wall thickening, or obvious pericholecystic inflammatory changes. PANCREAS: Unremarkable. SPLEEN: Unremarkable. ADRENAL GLANDS: Unremarkable. KIDNEYS AND URETERS: The kidneys are normal in size, shape, and attenuation. No hydronephrosis, hydroureter, or calculi seen. No perinephric stranding. BLADDER: Unremarkable. GASTROINTESTINAL TRACT: Status post gastrectomy. No acute change of the bowel. No bowel obstruction. No bowel wall thickening or edema. There is a small amount of fluid in the right lower quadrant around the cecum but no abscess. The appendix is not specifically identified. ABDOMINAL WALL: Small volume of edema in the anterior upper abdomen in the subcutaneous tissue consistent with laparoscopic portal site. LYMPH NODES: Normal. VASCULAR: Unremarkable. PELVIC VISCERA: Unremarkable. OSSEOUS STRUCTURES: Unremarkable. CT/CT abdomen pelvis w IV con IMPRESSION: Status post gastrectomy. No acute change of the bowel. There is a small amount of fluid in the right lower quadrant around the cecum but no abscess. The appendix is not specifically identified. Fleischner guidelines were followed.
[2023-10-03 09:17] VITALS: BP 162/93; PULSE 82; RESP 18; TEMP 36.6; O2SAT 96; BMI 41.6
[2023-10-03 09:34] LABS: MANUAL DIFF FLAG NO
[2023-10-03 09:36] LABS: Basophils Percent Auto 0.4 % (0-2); Eosinophils Absolute Auto 0.2 X10*3/uL (0.0-0.4); Hematocrit 39.9 % (37.0-47.0); Hemoglobin 12.7 g/dl (12.0-16.0); Imm Gran Abs Auto 0.04 X10*3/uL (0.00-0.03); Imm Gran Pct Auto 0.4 % (0.0-0.4); Lymphocytes Absolute Auto 2.1 X10*3/uL (1.2-4.9); Lymphocytes Percent Auto 18.9 % (20-40); Mean Corpuscular HGB Conc 31.8 g/dl (31.0-35.0); Mean Corpuscular Hemoglobin 24.7 pg (27.0-33.0); Mean Corpuscular Volume 77.6 fL (80.0-98.0); Mean Platelet Volume 10.4 fL (9.4-12.3); Monocytes Absolute Auto 0.7 X10*3/uL (0.1-1.2); Monocytes Percent Auto 6.6 % (2-11); Neutrophils Absolute Auto 7.8 x10*3/uL (2.0-8.3); Neutrophils Percent Auto 71.7 % (45-73); Platelet Count 301 X10*3/uL (160-400); Red Blood Count 5.14 X10*6/uL (4.20-5.50); Red Cell Distribution Width 16.4 % (11.0-16.0); White Blood Count 10.9 X10*3/uL (4.8-10.8)
[2023-10-03 09:50] LABS: Alanine Aminotransferase 37 U/L (0-31); Alkaline Phosphatase 107 U/L (39-117); Anion Gap 13 (12-20); Aspartate Amino Transferase 17 U/L (5-31); Bilirubin Direct 0.1 mg/dL (0.0-0.5); Bilirubin Total 0.4 mg/dL (0.0-1.0); Blood Urea Nitrogen 8 mg/dL (9-16); Calcium 9.6 mg/dL (8.4-10.2); Carbon Dioxide 24 mmol/L (22-29); Chloride 106 mmol/L (96-108); Creatinine Clr Calc Pharmacy 151.3; Estimated Glomerular Filt Rate > 60; Glucose Random 112 mg/dL (60-115); Lipase 22 U/L (8-78); Potassium 4.2 mmol/L (3.3-5.1); Sodium 139 mmol/L (135-145); Total Protein 7.6 g/dL (6.5-8.0)
[2023-10-03 11:25] VITALS: BP 133/77; PULSE 66; RESP 16; TEMP 36.1; O2SAT 100
--- NOTE | 2023-10-03 11:27 | PC.NURSE ---
Pt reports coming from home, epigastric ABD pain since this morning. Pt reports she had gastric bypass surgery 09/05/23. Pt reports she took her PO metformin this morning and was not supposed to per her GI doctor. Pt denies any vomiting or diarrhea but does report nausea and poor PO intake today. Pt denies cough or fever. Pt is alert and oriented, breathing even and unlabored, skin WNL. Pt reports 7/10 pain, epigastric region, describes as cramping and bubbling . VSS, resting in bed.
--- NOTE | 2023-10-03 11:36 | ED_ITS ---
HPI - General Adult General Chief complaint: Abdominal Pain Stated complaint: Stomach Pain S/P Surgery 09/05/23 Time Seen by Provider: 10/03/23 11:26 Source: patient Mode of arrival: ambulatory Limitations: no limitations History of Present Illness HPI narrative: Patient is a 23-year-old female with history laparoscopic sleeve gastrectomy on 09/05/2023, GERD, congenital intra-abdominal adhesions, liver steatosis and fibrosis, HLD, MDD, PCOS presenting to the emergency department with complaint of epigastric pain. She states that yesterday she took a metformin to ?control her hunger? as well as biotin, ashwaganda, and zinc because of a TikTok video that she saw. She has had colicky epigastric pain since. Rates worst pain at 8/10, states pain is currently 5/10. Reports nausea but denies vomiting. Denies diarrhea or constipation. Related Data Home Medications Medication Instructions Recorded Confirmed ondansetron 4 mg disintegrating 4 mg PO Q12H PRN nausea and 09/05/23 09/05/23 tablet vomiting Previous Rx's Medication Instructions Recorded pantoprazole 40 mg tablet,delayed 40 mg PO DAILY #90 tabs 08/31/23 release Allergies Allergy/AdvReac Type Severity Reaction Status Date / Time No Known Allergies Allergy Verified 10/03/23 09:21 Review of Systems 2 Review of Systems: Yes all other systems are reviewed and are negative Constitutional: Constitutional: Reports as per HPI COUNT INCLUDES THE [facility] Past Medical History Medical History (Updated 10/03/23 @ 15:54 by Deedee Mccracken NP) GERD (gastroesophageal reflux disease) Depression Hyperlipidemia Morbid obesity PCOS (polycystic ovarian syndrome) Surgical History (Updated 09/11/23 @ 10:59 by Sanna Pantoja CMA) S/P laparoscopic sleeve gastrectomy History of tonsillectomy and adenoidectomy Hx of foot surgery Family History Family History Mother Diabetes Thyroid condition Father Family history unknown Social History Social History Household Members: Family Housing: Apartment Are you a primary acute care nurse practitioner to a significant other at home: No Do you presently have visiting nurse or other home services: No Alcohol intake: never Patient Tobacco Use Status: Never used Tobacco Smoked in Last 30 Days: No Use of substances other than those prescribed or required for medical reasons: No Advance Directives: No Advance Directives Information Provided: No service: No Physical Exam ED Vital Signs: Vital Signs - 24 hr 10/03/23 09:17 10/03/23 11:25 10/03/23 14:32 Temperature 97.9 F 97 F Pulse Rate 82 66 66 Respiratory Rate 18 16 16 Blood Pressure 162/93 H 133/77 136/87 Pulse Oximetry 96 100 99 Oxygen Delivery Method Room Air Room Air BMI result Body Mass Index 41.6 Vital signs have been reviewed and appear to be correct. Blood pressure normal. Heart rate normal. Respiratory rate normal. Temperature normal. Oxygen saturation normal. Const General: cooperative, healthy appearing and no acute distress Orientation/consciousness: oriented to person, oriented to place, oriented to time and patient oriented x3 Limitations: no limitations HENMT Head: Yes normocephalic and Yes atraumatic Ears: external ears normal General nose exam: Normal external nose present Face and sinus: Yes face symmetric Mouth: oropharynx normal and moist mucous membranes Throat: Yes uvula midline Eyes Pupils: Equal, round and reactive pupils present Neck Neck: Yes normal visual inspection and Yes supple Resp Effort & Inspection: normal respiratory effort and able to speak in complete sentences Auscultation: clear to auscultation bilaterally Cardio Rate: regular rate Rhythm: regular rhythm Heart sounds: S1 normal heart sound present and S2 normal heart sound present GI Palpation (GI): Soft to palpation, Tenderness to palpation present (GI) in the epigastrum (mild), no guarding and No Rebound tenderness present Auscultation: normoactive bowel sounds General: Yes no CVA tenderness Back/Spine/Pelvis Back: no CVA tenderness Skin General skin exam: elasticity normal and turgor normal Neuro General: oriented to person, oriented to place, oriented to time, patient oriented x3, moves all extremities, no focal motor deficits and CN's II-XI intact bilaterally Cranial nerves: Yes Equal, round and reactive pupils present Cognition (Neuro): normal cognition Extrem General: Yes full ROM, Yes no pedal edema and Yes no calf tenderness Psych Mental Status: mental status grossly normal Affect: normal affect Thought process: Normal thought process present Medications Administered Discontinued Medications Generic Name Dose Route Start Last Admin Trade Name Freq PRN Reason Stop Dose Admin Diatrizoate Meglum/Diatrizoate Sod 30 ml 10/03/23 15:15 10/03/23 15:16 Diatrizoate Meglumine, Sodium 30 Ml Solution PO 10/03/23 15:16 30 ml ONCE ONE Administration Iohexol 100 ml 10/03/23 15:14 10/03/23 15:15 Iohexol 350 Mg/Ml 100 Ml Infus..Btl IV 10/03/23 15:15 85 ml ONCE ONE Administration Medical Decision Making Medical Decision Making [facility] Narrative: Patient is a 23-year-old female with history laparoscopic sleeve gastrectomy on 09/05/2023, GERD, congenital intra-abdominal adhesions, liver steatosis and fibrosis, HLD, MDD, PCOS presenting to the emergency department with complaint of epigastric pain. On exam patient is awake, A+Ox3, VS WNL, afebrile, normal neurological exam without focal deficits, physical exam findings as above. Given reported symptoms and physical exam findings, initial differential includes gastritis, herniation, infection, leakage. Labs notable for slight leukocytosis, no anemia, no significant electrolyte abnormalities, mildly elevated ALT, normal bili. CT notable for No acute abnormalities, small amount of fluid in RLQ around cecum, no abscess. Patient does not have any RLQ tenderness. My interpretation is in agreement with the radiologist's interpretation. Case discussed with KEESHA Dc from bariatrics and CT results reviewed. Patient states pain has completely resolved while in the ED without intervention. He is in agreement the patient is stable for discharge home. Strict return precautions reviewed with patient as well as education on not taking medications which are not advised. Patient instructed to follow-up with bariatric office outpatient. Patient verbalized understanding of and agreement with plan. Differential Diagnosis Differential Diagnoses: The differential diagnosis associated with the presentation includes As per MDM. Admission/Observation Consideration of admission/observation: Escalation of care including admission/observation considered Consult Healthcare Provider Management of the patient was discussed with: Director Labor Standards (KEESHA Camarena, bariatrics) Lab Data [facility] Lab Attestation statement: I reviewed the patient's lab results. As per MDM. 10/03/23 09:30 10/03/23 09:30 Labs: Lab Results 10/03/23 10/03/23 Range/Units 09:30 12:09 WBC 10.9 H (4.8-10.8) X10*3/uL RBC 5.14 (4.20-5.50) X10*6/uL Hgb 12.7 (12.0-16.0) g/dl Hct 39.9 (37.0-47.0) % MCV 77.6 L (80.0-98.0) fL MCH 24.7 L (27.0-33.0) pg MCHC 31.8 (31.0-35.0) g/dl RDW 16.4 H (11.0-16.0) % Plt Count 301 (160-400) X10*3/uL MPV 10.4 (9.4-12.3) fL Immature Gran % (Auto) 0.4 (0.0-0.4) % Neut % (Auto) 71.7 (45-73) % Lymph % (Auto) 18.9 L (20-40) % [place] % (Auto) 6.6 (2-11) % Eos % (Auto) 2.0 (0-4) % Baso % (Auto) 0.4 (0-2) % Lymph # (Auto) 2.1 (1.2-4.9) X10*3/uL [place] # (Auto) 0.7 (0.1-1.2) X10*3/uL Eos # (Auto) 0.2 (0.0-0.4) X10*3/uL Baso # (Auto) 0.0 (0.0-0.2) X10*3/uL Abs Immat Gran (auto) 0.04 H (0.00-0.03) X10*3/uL Absolute Neuts (auto) 7.8 (2.0-8.3) x10*3/uL Absolute Nucleated RBC 0.000 (0.0-0.012) X10*3/uL Nucleated RBC % (auto) 0.0 (0.0-0.2) /100WBC Sodium 139 (135-145) mmol/L Potassium 4.2 (3.3-5.1) mmol/L Chloride 106 (96-108) mmol/L Carbon Dioxide 24 (22-29) mmol/L Anion Gap 13 (12-20) BUN 8 L (9-16) mg/dL Creatinine 0.72 (0.5-1.4) mg/dL Estim Creat Clear Calc 151.3 Estimated GFR > 60 Random Glucose 112 (60-115) mg/dL Calcium 9.6 (8.4-10.2) mg/dL Total Bilirubin 0.4 (0.0-1.0) mg/dL Direct Bilirubin 0.1 (0.0-0.5) mg/dL AST 17 (5-31) U/L ALT 37 H (0-31) U/L Alkaline Phosphatase 107 (39-117) U/L Total Protein 7.6 (6.5-8.0) g/dL Albumin 4.0 (3.5-5.0) g/dL Lipase 22 (8-78) U/L Beta HCG, Quant < 2 mIU/mL Urine Color Yellow Urine Appearance Clear Urine pH 6.0 (5.0-9.0) Ur Specific [place] >= 1.030 H (1.005-1.025) Urine Protein Trace (Neg-Trace) mg/dL Urine Glucose (UA) Negative (Negative) mg/dL Urine Ketones Negative (Negative) mg/dL Urine Blood Negative (Negative) Urine Nitrite Negative (Negative) Ur Leukocyte Esterase Negative (Negative) Urine Test NEGATIVE (NEGATIVE) Independent Interpretation I performed an independent interpretation of an: CT Scan Interpretation: No acute abnormalities, small amount of fluid in RLQ around cecum, no abscess Radiology Impression Discussion of test interpretation with radiology: I have reviewed the radiologist's reading. Radiologist Impression: Status post gastrectomy. No acute change of the bowel. There is a small amount of fluid in the right lower quadrant around the cecum but no abscess. The appendix is not specifically identified. External Record Review External record reviewed: Inpatient record, Office record and Outpatient record Discharge Plan Discharge Clinical Impression: Abdominal pain Patient Disposition: Home, Self-Care Instructions: Abdominal Pain (ED) Additional Instructions: You were evaluated in the emergency department today for abdominal pain. Your evaluation including labs and CT scan did not show evidence of conditions requiring emergent medical treatment at this time. It is important that you closely follow the instructions provided to you by the bariatric surgery office and not take medications that you were not specifically instructed to take. Please call the bariatric surgery office to schedule a follow-up appointment, as you missed your most recent appointment there. Return to the emergency department if you develop worsening abdominal pain, persistent vomiting, fever/chills/body aches, or any other concerning symptoms. Prescriptions: No Action ondansetron 4 mg tablet,disintegrating 4 mg PO Q12H PRN (Reason: nausea and vomiting) Rx Instructions: Only take one every 12 hours as needed if you have nausea pantoprazole 40 mg tablet,delayed release (DR/EC) 40 mg PO DAILY Qty: 90 0RF Referrals: Denilson Dc PA [Phys[facility] [employer]] -
[2023-10-03 12:17] LABS: Appearance Urine Clear; Color Urine Yellow; Glucose Urine UA Negative (Negative); Leukocyte Esterase Urine Negative (Negative); Nitrite Urine Negative (Negative); Specific Gravity - Urine >= 1.030 (1.005-1.025); Urine Blood Negative (Negative); Urine Ketones Negative (Negative); Urine Protein Trace mg/dL (Neg-Trace)
[2023-10-03 12:18] LABS: UPreg QC Valid YES; Urine Pregnancy NEGATIVE (NEGATIVE)
[2023-10-03 12:46] LABS: HCG Quantitative < 2 mIU/mL
[2023-10-03 14:32] VITALS: BP 136/87; PULSE 66; RESP 16; O2SAT 99
[2023-10-03] MEDS: iohexoL 350 MG/ML 100 ML INFUS..BTL IV (15:15)
[2023-10-03] MEDS: Diatrizoate Meglumine, Sodium 30 ML SOLUTION PO (15:16)
== END 2023-10-03 16:36 | disposition home or self-care (01) ==
PROVIDERS: Registered Nurse Emergency; Emergency Provider Emergency Medicine Emergency Medical Services; PCP Pediatrics
DX: R10.13 Epigastric pain (principal); R11.0 Nausea; Z79.899 Other long term (current) drug therapy
CPT/HCPCS: 36415; 74177; 80048; 80076; 81003; 81025; 83690; 84702; 85025; 99284; Q9967

== ENCOUNTER 2024-01-21 16:03 | Outpatient (REF) | payer MEDICAID, SELFPAY ==
[2024-02-01 14:53] LABS: N. gonorrhoeae RNA TMA NOT DETECTED; Trichomonas (NAAT) NOT DETECTED
== END 2024-01-21 16:04 | disposition home or self-care (01) ==
LOC: HO.LNP 16:03
PROVIDERS: Visit Provider Advanced Practice Midwife
DX: Z12.4 Encounter for screening for malignant neoplasm of cervix (principal); Z20.2 Contact with and (suspected) exposure to infections with a predominantly sexual mode of transmission; Z11.3 Encounter for screening for infections with a predominantly sexual mode of transmission; R30.0 Dysuria
CPT/HCPCS: 87086; 87491; 87591; 87661; 88175

== ENCOUNTER 2024-04-30 11:35 | Outpatient (REF) | payer MEDICAID, SELFPAY ==
[2024-04-30 14:24] LABS: MANUAL DIFF FLAG NO
[2024-04-30 14:29] LABS: Basophils Absolute Auto 0.1 X10*3/uL (0.0-0.2); Basophils Percent Auto 0.6 % (0-2); Eosinophils Absolute Auto 0.1 X10*3/uL (0.0-0.4); Eosinophils Percent Auto 1.2 % (0-4); Hematocrit 35.5 % (37.0-47.0); Imm Gran Abs Auto 0.03 X10*3/uL (0.00-0.03); Imm Gran Pct Auto 0.4 % (0.0-0.4); Lymphocytes Absolute Auto 2.3 X10*3/uL (1.2-4.9); Lymphocytes Percent Auto 28.8 % (20-40); Mean Corpuscular Hemoglobin 24.2 pg (27.0-33.0); Mean Corpuscular Volume 78.2 fL (80.0-98.0); Mean Platelet Volume 11.5 fL (9.4-12.3); Monocytes Absolute Auto 0.7 X10*3/uL (0.1-1.2); Monocytes Percent Auto 8.6 % (2-11); Neutrophils Absolute Auto 4.9 x10*3/uL (2.0-8.3); Neutrophils Percent Auto 60.4 % (45-73); Platelet Count 308 X10*3/uL (160-400); Red Blood Count 4.54 X10*6/uL (4.20-5.50); Red Cell Distribution Width 14.6 % (11.0-16.0); White Blood Count 8.1 X10*3/uL (4.8-10.8)
[2024-04-30 14:52] LABS: Alanine Aminotransferase 16 U/L (0-31); Alkaline Phosphatase 91 U/L (39-117); Anion Gap 12 (12-20); Aspartate Amino Transferase 12 U/L (5-31); Bilirubin Direct 0.1 mg/dL (0.0-0.5); Bilirubin Total 0.4 mg/dL (0.0-1.0); Blood Urea Nitrogen 8 mg/dL (9-16); Calcium 9.5 mg/dL (8.4-10.2); Carbon Dioxide 26 mmol/L (22-29); Chloride 105 mmol/L (96-108); Cholesterol 215 mg/dL (<200); Estimated Glomerular Filt Rate > 60; Glucose Fasting 74 mg/dL (60-99); HDL Cholesterol 44 mg/dL (>40); LDL Cholesterol Calculated 150 mg/dL (<100); Potassium 3.9 mmol/L (3.3-5.1); Sodium 139 mmol/L (135-145); Total Protein 7.4 g/dL (6.5-8.0); Triglycerides 108 mg/dL (<150)
[2024-04-30 14:59] LABS: TSH reflex Free T4 0.67 uIU/mL (0.32-4.0); Vitamin D 25-OH Total 26.1 ng/mL (>30)
[2024-04-30 15:12] LABS: Folate 4.8 ng/mL (> or = 4.0); Vitamin B12 306 pg/mL (200-900)
[2024-04-30 17:00] LABS: CT PCR NOT DETECTED (Not Detect.); NG PCR NOT DETECTED (Not Detect.)
[2024-05-01 04:49] LABS: HIV AB/AG Nonreactive (Nonreactive); HIV Num 1 0.06 S/CO (0.00-0.99); ~HepC Num1 0.12 S/CO (0.00-0.79); ~Hepatitis C Antibody Nonreactive (Nonreactive)
== END 2024-04-30 11:36 | disposition home or self-care (01) ==
LOC: HO.CHCLDS 11:35
PROVIDERS: Visit Provider Pediatrics
DX: E28.2 Polycystic ovarian syndrome (principal); Z23 Encounter for immunization; E11.9 Type 2 diabetes mellitus without complications; Z20.2 Contact with and (suspected) exposure to infections with a predominantly sexual mode of transmission
CPT/HCPCS: 36415; 80048; 80061; 80076; 82306; 82607; 82746; 84443; 85025; 86803; 87389; 87491; 87591